=== PATIENT | male | born 1970 | race Caucasian/White ===

== ENCOUNTER 2023-03-19 07:16 | Outpatient (CLI) | payer OTHER, MEDICARE, SELFPAY | END 2023-03-19 07:17 | disposition home or self-care (01) | LOC: AMB 03-23 09:29 | PROVIDERS: PCP Physician Assistant Medical; Visit Provider Family Medicine | DX: R07.89 Other chest pain (principal) | CPT/HCPCS: A0425; A0427 ==

== ENCOUNTER 2023-03-19 07:56 | Emergency (ER) | payer OTHER, SELFPAY ==
[2023-03-19] VITALS (11 sets, daily range): BP systolic 113–144; BP diastolic 70–110; PULSE 44–70; RESP 12–30; TEMP 36.8; O2SAT 94–99; BMI 27.3
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
--- NOTE | 2023-03-19 08:39 | CRLHL7_ITS ---
For Patients: As a result of the Cures Act, medical imaging exams and procedure reports are released immediately into your electronic medical record. You may view this report before your referring provider. If you have questions, please contact your health care provider. INDICATION: CP INDICATION: Chest pain. TECHNIQUE: Chest 1 view. COMPARISON: 08/31/2022. FINDINGS: Cardiovascular and mediastinum: Heart size and vasculature are normal in caliber and appearance. Mediastinum is within normal limits. Lungs and pleural space: Lungs are clear. No sign of infiltrate or mass. No sign of pleural effusion. No pneumothorax. Bones and soft tissues: No significant findings. IMPRESSION: Lungs are clear. Dictated by Mello John MD @ 03/19/2023 9:16:29 AM Dictated by: Mello John MD @ 03/19/2023 09:16:35 (Electronically Signed)
[2023-03-19 08:50] LABS: Basophils Percent Auto 0.5 % (0.0-3.0); Eosinophils Percent Auto 2.9 % (0.0-7.0); Hematocrit 41.9 % (37.0-53.0); Hemoglobin* 14.2 gm/dL (13.5-17.5); Immature Granulocytes Pct Auto 0.9 %; Lymphocytes Percent Auto 17.1 % (20-44); Mean Corpuscular HGB Conc 34 gm/dL (32-36); Mean Corpuscular Hemoglobin 28 pg (26-34); Mean Corpuscular Volume 83 fL (80-100); Monocytes Percent Auto 4.4 % (0.0-11.0); Neutrophils Percent Auto 74.2 % (42.0-72.0); Platelet Count* 386 K/uL (140-440); RDW Coefficient of Variation % 12.2 % (11.5-15.5); Red Blood Count 5.06 m/uL (4.30-5.90)
[2023-03-19 08:54] LABS: Slide Review Reflex No
[2023-03-19 09:02] LABS: Albumin* 4.4 g/dL (3.3-5.0); Chloride* 105 mmol/L (96-114)
[2023-03-19 09:03] LABS: Potassium* 4.2 mmol/L (3.6-5.1); Sodium* 137 mmol/L (135-149)
[2023-03-19 09:05] LABS: Alkaline Phosphatase* 64 U/L (40-150); Aspartate Amino Transferase* 25 U/L (12-35); Bilirubin Total* 0.3 mg/dL (0.1-1.5); Carbon Dioxide* 25 mmol/L (20-32); Creatinine* 0.8 mg/dL (0.5-1.5); Est. Creatinine Clearance* 110.47; Estimated Glomerular Filt Rate 108 ml/min; Lipase* 54 U/L (23-300); Total Protein* 7.3 g/dL (6.0-8.3)
[2023-03-19 09:06] LABS: Alanine Aminotransferase* 24 U/L (4-50); Blood Urea Nitrogen* 12 mg/dL (7-30); Glucose* 132 mg/dL (60-115); Magnesium* 2.3 mg/dL (1.5-2.6)
[2023-03-19] MEDS: ONDANSETRON 2 MG/ML inj 4 MG IVP (09:07)
[2023-03-19 09:09] LABS: C Reactive Protein* < 0.5 mg/dL (0.5-1.0)
[2023-03-19 09:20] LABS: D Dimer Quantitative* < 0.27 ug/ml (0.00-0.50)
--- NOTE | 2023-03-19 09:28 | CRLHL7_ITS ---
For Patients: As a result of the Century Cures Act, medical imaging exams and procedure reports are released immediately into your electronic medical record. You may view this report before your referring provider. If you have questions, please contact your health care provider. INDICATION: Chest pain Indication: Chest pain. Technique: CT pulmonary angiogram. 95 cc of Isovue 370 IV. Coronal/sagittal reconstruction images. Comparison: Chest one view, 03/19/2023. Findings: The thyroid gland is symmetric. There is no mass at the thoracic inlet. Nonenlarged axillary lymph nodes are present. There is no displaced intimal calcification. The main pulmonary artery is normal in caliber. No pulmonary emboli are seen. There is no evidence for right heart strain. Thoracic lymphadenopathy. The lung windows demonstrate no endobronchial mass. There is no bronchiectasis. There is no architectural distortion. There is no peripheral reticulation, honeycomb formation, or traction bronchiectasis. Minimal paraseptal emphysema at the right lung apex. No suspicious pulmonary nodule. Evaluation the upper abdomen demonstrates a non cirrhotic liver morphology. No dilation of intrahepatic biliary radicals. No radiopaque gallstone. No right adrenal mass. There is a nodule present in the lateral limb, left adrenal gland, measuring 13 mm, and -7 Hounsfield units. There is no pancreatic mass or glandular atrophy. No upper abdominal ascites. The bone windows demonstrate no suspicious bone lesions. Alignment is maintained on sagittal reconstruction images. Manubrium/body of the sternum appear intact. Impression: 1. No pulmonary emboli. 2. No evidence on CT for right heart strain. No pulmonary infarct. 3. No thoracic lymphadenopathy by size criteria. No acute airspace disease. 4. Incidental nodule in the lateral limb of the left adrenal gland measuring 13 mm. Given density characteristics, an adenoma is favored. 5. Report called to Dr. Galvan, KEYSHA, 03/19/23, 1039 am. Dictated by Mello John MD @ 03/19/2023 10:40:02 AM Please note that all CT scans at this facility use dose modulation, iterative reconstruction, and/or weight-based dosing when appropriate to reduce radiation dose to as low as reasonably achievable. Dictated by: Mello John MD @ 03/19/2023 10:40:12 (Electronically Signed)
[2023-03-19] MEDS: KETOROLAC 15 MG/ML inj IVP (09:36)
--- NOTE | 2023-03-19 11:15 | ED.NURSE ---
patient is feeling much better and more comfortable in the bed. pain is much improved.
[2023-03-19 11:23] LABS: Troponin, Point-of-Care* 0.01 ng/ml (0.01-0.04)
[2023-03-23 18:10] LABS: Calcium* 9.4 mg/dL (8.4-10.6)
== END 2023-03-19 12:12 | disposition home or self-care (01) ==
PROVIDERS: Emergency Provider Family Medicine; PCP Physician Assistant Medical
DX: R09.1 Pleurisy (principal); R07.89 Other chest pain
CPT/HCPCS: 36415; 71045; 71275; 80053; 83690; 83735; 84484; 85025; 85379; 86140; 93005; 96374; 96375; 99284; 99285; J1885; J2405; Q9967

== ENCOUNTER 2023-04-30 15:59 | Emergency (ER) | payer MEDICARE, SELFPAY ==
[2023-04-30 16:16] VITALS: BP 98/57; PULSE 72; RESP 16; O2SAT 93; BMI 24.4
--- OUTSIDE RECORDS SUMMARY | 2023-04-30 16:39 | XMS_ITS | Continuity of Care Document ---
Author Name Unknown Organization [facility] Address [place] [address], [address] [place] [address]- Encounter 03/20/23 - 03/22/23 [facility] [address] [place], [place] [address] Encounter Diagnosis Weakness(Discharge Diagnosis) - 03/20/23 Attending Physician: Vickey Rob MD Allergies, Adverse Reactions, Alerts No Known Allergies Assessment and Plan Extracted from: Title:Office Visit Note Author:Jaswant Rob MD Date:03/22/23 1.??Weakness??(R53.1) Weakness. ??I backed from the left??deltoid muscle biopsy. ??The patient is right-handed.?? We discussed the procedure the risk the recovery etc.??a surgery order was placed Ordered: [id number] office o/p new low 30-44 min (Charge), Quantity: 1, Weakness ?? Medications No Known Medications Problem List Condition Confirmation Course Effective Dates Status Health St [facility] Informant Chronic pain Confirmed Active Anxiety and depression Confirmed Active Lumbar spinal stenosis Confirmed Active Diagnosis Diagnosis Type Effective Dates Health Status Clini orly Service Informant Weakness Discharge Diagnosis 03/20/23 Vital Signs Most recent to oldest [Reference Range]: 1 Height Measured 68 in (03/20/23 1:35 PM) Weight Measured 172 lb (03/20/23 1:35 PM) Body Mass Index [18.5-25 kg/m2] 26.15 kg /m2 *HI* (03/20/23 1:35 PM) BSA 1.93 m2 (03/20/23 1:35 PM) Blood Pressure [90-120/60-80 mmHg] 122/7 4mmHg *HI* (03/20/23 1:35 PM) Mean Arterial Pressure 90 mmHg (03/20/23 1:35 PM) Peripheral Pulse Rate [60-100 bpm] 60 bp m (03/20/23 1:35 PM) Allergies Verified? Yes (03/20/23 1:35 PM) Medication History Verified? Yes (03/20/23 1:35 PM) Social History Social History Type Response Smoking Status Never smoker Sex Surgery Note * Vickey Rob MD: PERFORM Event Display: Surgery Note Authored Date: [id number] ARNOLDEBBIEDoug Shaw Address: [address] [place], [place] [address] Sex:Male :1970 Location:[place] Date of Service:03/20/2023 Chief Complaint New patient consult, left biceps biopsy History of Present Illness Patient is a 52-year-old male with chronic pain and weakness.?? He is referred by neurology??for a muscle biopsy.?? They requested left deltoid. Review of Systems Please see general surgery patient information form for complete ROS, which has been scanned into the medical record. Physical Exam Vitals & Measurements HR:??60??(Peripheral)?? BP:??122/74?? HT:??68??in?? WT:??172??lb?? BMI:??26.15?? Noncontributory Assessment/Plan 1.??Weakness??(R53.1) Weakness. ??I backed from the left??deltoid muscle biopsy. ??The patient is right-handed.?? We discussed the procedure the risk the recovery etc.??a surgery order was placed Ordered: [id number] office o/p new low 30-44 min (Charge), Quantity: 1, Weakness ?? Problem List/Past Medical History Ongoing Anxiety and depression Chronic pain Lumbar spinal stenosis Allergies No Known Medication Allergies No known allergies Social History Smoking Status Never smoker Electronically Signed on 03/22/2023 09:59 AM Vickey Rob MD
--- OUTSIDE RECORDS SUMMARY | 2023-04-30 16:39 | XMS_ITS | Continuity of Care Document ---
Author Name Unknown Organization [facility] Address [place] [address] [place] [address], [address] [place] [address]- Encounter 03/22/23 - 03/29/23 [facility] [address] [place] [address] Allergies, Adverse Reactions, Alerts No Known Allergies Problem List Condition Confirmation Course Effective Dates Status Health [facility] Informant Chronic pain Confirmed Active Anxiety and depression Confirmed Active Lumbar spinal stenosis Confirmed Active Social History Social History Type Response Smoking Status Never smoker Sex
--- OUTSIDE RECORDS SUMMARY | 2023-04-30 16:40 | XMS_ITS | Continuity of Care Document ---
Author Name Unknown Organization [facility] Address [address] [address] [place] [address] Phone Care Team Providers Care Registered Nurse Obstetrics Name Role Phone Brian Velásquez MD Unavailable Unavailabl e Allergies, Adverse Reactions, Alerts Substance Reaction Status Criticality No Known Allergies Active No Inform ation Medications Medication Instructions Dosage Effective Dates (start - stop) Status Comments LISINOPRIL (unknown strength) Not Available - Active Lomotil 2.5 mg-0.025 mg tablet take 1 tablet by oral route 2 times every day as needed 2.5 MG - Active trazodone 300 mg tablet take 1 tablet by oral route every evening with food as needed - Active Procedures Procedure Date Offic/outpt E&m Estab Low-mod 7 Routine Serum Collection Immuniz Admin; 1/combo Vacc/to 17 Influenza vaccine-quadrivalent 0.5 ML Oc Hepatic Function Panel Stool Kits Given Routine Serum Collection Offic/outpt E&m Estab Mod-hi 2 17 Gg; Iga, Igd, Igg, Igm, Ea Gg; Ige Hepatitis B Surface Antibody C-reactive Prot Hep B Core Antibody Hepatitis C Antibody; Hepatic Function Panel Colonoscopy Flex; W/bx 1/mx Ugi Endo; W/bx 1/mx Stool Kits Given FilmArray GI Panel Routine Serum Collection Offic/outpt E&m New Mod-hi Gg; Iga, Igd, Igg, Igm, Ea Bld Ct; Hg/pltlt Ct Auto/compl 17 Comp Metabolic Panel Advance Directives Directive Yes / No Effective Date File Name No Information Encounters Encounter Description Practice Location Reason(s) For Visit Diagnoses Date Provider Providers Copied on Encounter [facility], [address] [address], [place], [id number], [place] tel:[phone] [facility] No Information 7 Dideir Torres. [address], [place], [place], [id number] , [place]. tel: [phone] Offic/outpt E&m Estab Low-mod [facility], [address] [address], [place], [id number], [place] tel:[phone] [facility] GI Symptoms or Concerns (chief complaint) Diverticulosis of colonElevated LFTs 7 Didier Torres. [address], [facility] [place], [id number] , [place]. tel: [phone] Referring Provider: Referral Self. [facility], [address] [address], [place], [id number], [place] tel:[phone] [facility] No Information 7 Didier Torres. [address], [facility] [place], [id number] , [place]. tel: [phone] Referring Provider: Referral Self. Offic/outpt E&m Estab Mod-hi 2 [facility], [address] [address], [place], [id number], [place] tel:[phone] [facility] GI Symptoms or Concerns (chief complaint) Diarrhea, unspecifiedAlcoho l abuseElevated LFTs 7 Didier Torres. [address], [place], [id number] , [place]. [phone] Referring Provider: Referral Self. [facility], [address] [address], [place], [id number], [place] tel:[phone] [facility] No Information Medardo Bentley. [address], [place], [id number] , [place]. tel:[phone] Referring Provider: Mc Batres MD S, [address], [place], [address] . tel:[phone] [facility], [address] [address], [place], [id number], [place] tel:[phone] [facility] Noninfective gastroenteritis and colitis, unspecified Didier Torres. [address], [facility] [address], [place], [id number] , [place]. tel:[phone] Referring Provider: Referral Self. Offic/outpt E&m New Mod-hi [facility], [address] [address], [place], [id number], [place] tel:[phone] [facility] GI Symptoms or Concerns (chief complaint) Nausea vomiting and diarrheaDiarrhea, unspecifiedAbnorm al CT scan, small bowelChronic diarrheaAlcohol abuseDietary counseling and surveillanceEleva andrew blood-pressure reading, w/o diagnosis of htn Didier Torres. [address], [place], [id number] , [place]. tel: [phone] Referring Provider: Referral Self. Family History Family Member Type Diagnosis Age At Onset Maternal uncle Problem (finding) diverticulitis of col on Mother Problem (finding) malignant neop lasm of breast in first degree relative Immunizations Vaccine Date Status Comments Influenza, injectable, quadrivalent, preservative free, 3 yrs or older administered Source: New Immuniz ation Record Payers Payer name Insurance type Covered green party ID Authoriza tion(s) [employer] [facility] [id number] [employer] [facility] [id number] Social History Type Description Quantity Date Captured Comments Alcohol Use Details Unknown Caffeine Use Details Unknown Tobacco Use Status Smoking Status No Information Sex Male Chief Complaint And Reason For Visit No Information Reason For Referral Reason For Referral No Information Plan Of Treatment Date Type Action Status Goal Lifestyle education regardin g diet completed Referral Ordered: Pancreatic Elastase, Fecal Appointment date/timeframe: 05/15/2017 ordered Referral Ordered: Fecal Fat, Qualitative Appointment date/timeframe: 05/22/2017 ordered Referral Ordered: MRI Enterography WITHOUT And WITH Contrast Appointment date/timeframe: 04/24/2017 ordered Referral Ordered: Colonoscopy Appointment date/timeframe: 04/06/2017 ordered Referral Ordered: EGD Appointment date/timeframe: 04/06/2017 ordered History Of Present Illness Encounter Date Complaint History Of Prese nt Illness GI Symptoms or Concerns BOGDAN Wood comes to the office for followup. We reviewed his workup to date including negative MR enterography from 04/25/2017, negative ultrasound of the liver from 04/24/2017, negative colonoscopy with negative biopsies, and negative EGD with reactive gastropathy from 04/06/2017. We also reviewed his negative laboratory work as to the causes of chronic liver disease other than alcohol or fatty liver.His diarrhea has essentially resolved. He has one or two loose stools per week, but this is significantly better than before. He is not on a high-fiber diet. He does not have significant abdominal pain or rectal bleeding. He does not have constipation. There is no melena. There is no dysphagia, odynophagia, nausea, vomiting, heartburn, jaundice, fatigue, pruritus, shortness of breath, or diaphoresis. He has decreased his alcohol consumption significantly. This past weekend, he had four beers while watching a football game and the weekend before that he had eight GI Symptoms or Concerns BOGDAN Lott comes to the office for followup. His original note from 03/27/2017 is reviewed. His testing from that day reveals normal hemoglobin and hematocrit, WBC mildly elevated at 11.6, AST of 66, ALT of 114, normal alkaline phosphatase, normal bilirubin, total immunoglobulins 133, no evidence for celiac disease, TSH normal at 4.2, stool test by EILEEN was negative.EGD and colonoscopy performed on 04/06/[address] Batres showed a normal exam, except for sigmoid diverticulosis. EGD showed mild gastritis. Pathology study showed normal duodenum with no evidence for celiac disease, reactive gastropathy likely secondary to alcohol, and random colonic biopsies were negative for microscopic colitis.The patient has about 50% to 60% improved. He continues to have loose stools up to six times or more daily. His abdominal pain has essentially resolved. There is no rectal bleeding or melena. He is feeling stronger, albeit not back to his baseline. He continues to consume GI Symptoms or Concerns [facility].CHIEF COMPLAINTAbdominal pain, abnormal CAT scan, and diarrhea.HISTORY OF PRESENT ILLNESSMr. Wood is a 46-year-old gentleman with a past medical history of chronic alcohol abuse as well as chronic diarrhea, who was seen in followup from [facility]. He reports a baseline loose stool for the past 10 years. This is described as four to six loose to semiformed bowel movements daily, albeit sometimes less. There is no rectal bleeding or melena, although he did have one episode of hematochezia recently. Over the past six months, this has increased to 10 bowel movements daily, and over the past several days, he had significant abdominal pain. There is no ongoing bleeding or melena. He had nausea and vomiting x2 associated with the acute nausea and vomiting. He was seen at [facility] last Monday and had a CT scan, which showed mucosal thickening in the jejunum related to likely gastroenteritis with an otherwise negative e Functional Status Date Functional Assessmen t No Information Instructions Date Instruction Additional Infor valerie 1. High-fiber diet 2 5 g daily. The patient given literature regarding high-fiber diet.2. Recheck liver function testing today. If this remains elevated, I will have him follow up with the [facility].3. The patient will be notified of the above results and appointment made if needed.4. Continue to lower alcohol consumption as much as possible. The patient has done very good job from this perspective and overall feels 100% better than when he was originally seen.5. The patient otherwise will follow up with his primary care provider and contact our office with any problems, questions, or concerns regarding the above.6. The patient's questions were answered today to his satisfaction. He voices understanding and agrees with the above plan. Related to Diverticulosis of colon Diverticulosis/Diverticulitis Re lated to Diverticulosis of colon High fiber det Related to Diver ticulosis of colon 1. Serological jovanny p for causes of liver disease as ordered.2. Check stool for elastase and check a lipase today.3. We will check an ultrasound of the liver given his ongoing alcohol consumption and abnormal liver function testing.4. We will check an MR enterography to follow up on the CT scan thickenings.5. I will give the patient Lomotil one capsule once or twice daily to see if we can help with his bowel movements.6. Again, I had a long discussion with the patient regarding the need to discontinue alcohol consumption and hopefully can go back to Alcoholics Anonymous. Patient again voices understanding and says he will try.7. Patient will see me back in one month, or sooner if indicated.8. Patient's questions were answered today to his satisfaction. He voices understanding and agrees with the above plan.9. Patient otherwise will follow up with his primary care physician and contact their office if any problems, questions, or concerns regarding the above. Related to Diarrhea, unspecified Lifestyle education regarding di et Related to Dietary counseling and surveillance Assessments Type Assessment Date No Information Patient Care Teams Name Effective Dates (start - stop) Status Members No Information
--- OUTSIDE RECORDS SUMMARY | 2023-04-30 16:40 | XMS_ITS | Continuity of Care Document ---
Author Name Unknown Organization [facility] Address [address] [place] [address] Phone Care Team Providers Care Digital Color Press Operator Name Role Phone Will Jaspal CASTANEDA Unavailable Unavailabl e Allergies, Adverse Reactions, Alerts Substance Reaction Status Criticality No Known Allergies Active No Inform ation Medications Medication Instructions Dosage Effective Dates (start - stop) Status Comments trazodone 150 mg tablet Take 200 mg by mouth nightly. - Active Pain Relief 500 mg tablet Take 1 tablet by mouth every 4 hours as needed for Pain. Maximum 4000mg per 24 hours - Active Celebrex 200 mg capsule Take 200 mg by mouth daily (every 24 hours). - Active metoprolol succinate ER 100 mg tablet,extended release 24 hr take 2 tablet by oral route every day 200 MG - Active amlodipine 10 mg tablet take 1 tablet by oral route every day 10 MG - Active bupropion HCl 150 mg tablet,12 hr sustained-release(smo derick deterrent) take 1 tablet by oral route every day 150 MG - Active Procedures Procedure Date PT-FOCUSED HLTH RISK ASSMT OFFICE/OUTPAT[place] VISIT, [place] Directive Yes / No Effective Date File Name No Information Encounters Encounter Description Practice Location Reason(s) For Visit Diagnoses Date Provider Providers Copied on Encounter [facility], [address] [place], [place], [id number] , tel:[phone] [facility] No Information 2 Jaxson Shay. [address] [place], [id number] , [place]. [phone] OFFICE/OUTPA TIENT VISIT, [facility], [address] [place], [place], [id number] , [place] tel:[phone] [facility] low back pain (chief complaint) Encounter for screening, unspecifiedAnxiety disorder, unspecifiedOther manager long term care (current) drug therapyLow back pain 0 Pratibha Ruiz. [address], [place], [id number] , [place]. tel:[phone] Referring Provider: Jaspal Angel, [address] [place], [address] . tel:[phone] [facility], [address] [place] [address], [id number] , [place] tel:[phone] [facility] No Information 0 Kayleigh Mendoza. [employer], [address], [place], [address], [place]. [phone] Family History Family Member Type Diagnosis Age At Onset No Information Payers Payer name Insurance type Covered constitution party ID Authoriza tiyaz(s) [employer] [id number] Social History Type Description Quantity Date Captured Comments Sex Male Smoking Status No Information Chief Complaint And Reason For Visit No Information Reason For Referral Reason For Referral No Information Plan Of Treatment Date Type Action Status Goal Tobacco cessation counseling completed History Of Present Illness Encounter Date Complaint History Of Prese nt Illness low back pain Onset: sudden wi th injury. Severity level is 5. Duration: chronic. The problem is stable. It occurs persistently. Location of pain is gluteal area and bilateral hips.The patient describes the pain as an ache and sharp. Symptoms are aggravated by ascending stairs, bending, descending stairs, lifting, sitting, standing, walking and movement. Symptoms are relieved by heat, ice, lying down, pain meds/drugs, rest, sitting and standing. low back pain (comments) Roque wang s a 49 year old male referred to our clinic by his PCP, Christa Burks.He presents with a year history of low back pain R>L and left hip pain which began in April 2019 as the result of a work place injury where he fell off of a step-stool Per pt report, he was evaluated and determined to have fractured a rib and 4 bulging disks. Reports pain travelling down legs while walking. Reports occasional sudden loss of strength while walking. Reports his pain is worse with walking, unable to stand for extended periods of time, unable to sit for >15 minutes.Additional complaints of headaches which are typically managed with Excedrin.Previous course of PT without benefit and increased pain. Previous GTB bursa and MBBx2 injections through [facility]. Scheduled to complete MBB 09/25 at [facility], pursuing RFA. Most recent imaging completed 06/2019 at [facility]. Previous trial of gabapentin caused aggression and increased headaches. Ongoing use of celebrex with benefit.Patient requests to have [facility] assume medication management - currently Rx'd by PCP Functional Status Date Functional Assessmen t No Information Instructions Date Instruction Additional Infor mation No Information Assessments Type Assessment Date No Information Patient Care Teams Name Effective Dates (start - stop) Status Members No Information
--- NOTE | 2023-04-30 16:45 | CRLHL7_ITS ---
For Patients: As a result of the Cures Act, medical imaging exams and procedure reports are released immediately into your electronic medical record. You may view this report before your referring provider. If you have questions, please contact your health care provider. Indication: metal nail removed near 2nd digit Technique: Left hand 3 views. Comparison: None. Impression: Along the ulnar aspect near the diaphysis of the 2nd distal phalanx there is a probable small osseous fragment, suspicious for avulsion fracture versus less likely retained metal fragment as clinically queried. No other evidence of fracture. Tiny radiopaque speckle near the ulnar styloid which may represent a foreign body. No subcutaneous emphysema. Dictated by Dorian Thomas MD @ 04/30/2023 5:32:02 PM (Electronically Signed)
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
--- NOTE | 2023-04-30 17:04 | ED.NURSE ---
Soaking hand in hibiclens, will wrap with dry gauze afterward
== END 2023-04-30 17:33 | disposition home or self-care (01) ==
PROVIDERS: Emergency Provider Student in an Organized Health Care Education/Training Program; PCP Physician Assistant Medical
DX: S61.442A Puncture wound with foreign body of left hand, initial encounter (principal); W29.4XXA Contact with nail gun, initial encounter
CPT/HCPCS: 10120; 73130; 90471; 90714; 99283

== ENCOUNTER 2024-01-22 08:07 | Outpatient (CLI) | payer BC, MEDICAID, SELFPAY ==
--- OUTSIDE RECORDS SUMMARY | 2024-01-24 01:36 | XMS_ITS | Clinical Summary ---
Author Organization [facility] Address [address] [place] [address]. [place] [address] Care Team Providers Care Automobile Service Writer Name Role Phone Bruce, [facility] Primary Care Provider Allergies No known active allergies Medications Medication Sig Dispensed Refills Start Date End Date Status TRAZODONE HCL PO Take 300 mg by mouth nightly as needed for sleep Active amLODIPine (NORVASC) 10 MG tablet Take 10 mg by mouth daily Active Metoprolol Tartrate 75 MG TABS Active celecoxib (CELEBREX) 400 MG capsule Take 400 mg by mouth daily Active Methocarbamol (ROBAXIN PO) Active Active Problems Problem Noted Date Diagnosed Date Chest pain at rest 12/21/2015 Pneumonia 09/11/2013 Resolved Problems Problem Noted Date Diagnosed Date Resolved Date Chest pain 12/21/2015 12/22/2015 Immunizations Name Administration Dates Next Due Pneumococcal 23 valent 09/14/2013 Family History Medical History Relation Comments Brain Cancer Brother Cerebrovascular Disease Father Coronary Artery Disease Father Cerebrovascular Disease Maternal Grandfather Rheumatoid Arthritis Maternal Grandmother Breast Cancer Mother Coronary Artery Disease Mother Rheumatoid Arthritis Mother Relation Status Comments Brother Father Maternal Grandfather Maternal Grandmother Mother Social History Tobacco Use Types Packs/Day Years Used Date Smoking Tobacco: Every Day Cigarettes 1 15 Smokeless Tobacco: Current Tobacco Cessation:Ready to Q uit: No; Counseling Given: Yes Alcohol Use Standard Drinks/Week Comments Yes 90 (1 standard drink = 0.6 oz pu re alcohol) Adolescent Education Answer Date Record ed Getting School Help Needed Not on file 05/06 Sex and Gender Information Value Date Recorded Sex Assigned at Not on file Gender Identity Not on file Sexual Orientation Not on file Last Filed Vital Signs Vital Sign Reading Time Taken Comments Blood Pressure 134/82 10/08/2019 1:13 PM CDT Pulse 80 10/08/2019 1:13 PM CDT Temperature 36.7 ??C (98.1 ??F) 10/05/2019 5:24 PM CS T Respiratory Rate 16 10/08/2019 1:13 PM CDT Oxygen Saturation 94% 10/08/2019 1:13 PM CDT Inhaled Oxygen Concentration - - Weight 95.3 kg (210 lb) 10/08/2019 1:13 PM CDT Height 170.2 cm (5' 7) 10/08/2019 1:13 PM CDT Body Mass Index 32.89 10/08/2019 1:13 PM CDT Plan of Treatment Not on file Advance Directives For more information, please contact: [phone] * Full Code (Latest Code Status on File) Date Activated Date Inactivated Comments 12/22/2015 9:08 AM 09/02/2018 12:21 PM * Full Code Date Activated Date Inactivated Comments 12/21/2015 12:28 PM 12/22/2015 9:08 AM * Full Code Date Activated Date Inactivated Comments 09/11/2013 6:38 PM 09/14/2013 2:23 PM Care Teams Automobile Service Writer Relationship Specialty Start Date End Date Clinic, [facility] [address] PCP - General 09/02/18
--- OUTSIDE RECORDS SUMMARY | 2024-01-24 01:36 | XMS_ITS | Continuity of Care Document ---
Author Organization [facility] Address [address] [place] [address] Phone Care Team Providers Care Rn Tele Name Role Phone RN, RN Unavailable Unavailable Allergies, Adverse Reactions, Alerts Substance Reaction Status Criticality No Known Allergies Active No Inform ation Advance Directives Directive Yes / No Effective Date File Name Other Directive No N/A N/A WARNING:The information contained in this section is historical and is provided for information only and does not constitute a legal document or any assurance that the information is still accurate. Please verify the information with the marcial of the legal document before using it for clinical purposes. Encounters Encounter Description Practice Location Reason(s) For Visit Diagnoses Date Provider Providers Copied on Encounter [facility], [address], [place], [id number], tel:[phone] [facility] No Information RN NILES. [address], [address], [place], [id number], [place]. tel:[phone] Family History Family Member Type Diagnosis Age At Onset No Information Payers Payer name Insurance type Covered green party ID Authoriza tion(s) No Information Social History Type Description Quantity Date Captured Comments Alcohol Use Details Unknown Caffeine Use Details Unknown Tobacco Use Status No Information Smoking Status No Information Sex Male Chief Complaint And Reason For Visit No Information Reason For Referral Reason For Referral No Information Plan Of Treatment Date Type Action Status Appointment [place] BOOKED History Of Present Illness Encounter Date Complaint History Of Prese nt Illness No Information Functional Status Date Functional Assessmen t No Information Instructions Date Instruction Additional Infor mation No Information Assessments Type Assessment Date No Information Patient Care Teams Name Effective Dates (start - stop) Status Members No Information
--- OUTSIDE RECORDS SUMMARY | 2024-01-24 01:36 | XMS_ITS | Referral Summary ---
Author Organization [facility] Address [address] [place] [address]. [place] [address] Care Team Providers Care Director Of Medical Staff Services Name Role Phone [facility] Primary Care Provider Allergies No known active [...] Dates Next Due Pneumococcal 23 valent 09/14/2013 Social History Tobacco Use Types Packs/Day Years [...] Advance Directives For more information, please contact: [phone] * Full Code (Latest Code Status on File) Date Activated Date Inactivated Comments 12/22/2015 9:08 AM 09/02/2018 12:21 PM * Full Code Date Activated Date Inactivated Comments 12/21/2015 12:28 PM 12/22/2015 9:08 AM * Full Code Date Activated Date Inactivated Comments 09/11/2013 6:38 PM 09/14/2013 2:23 PM Care Teams Director Of Medical Staff Services Relationship Specialty Start Date End Date Pe[facility] Barrera [address] [place] [address] [facility] - General 09/02/18
--- OUTSIDE RECORDS SUMMARY | 2024-01-24 01:36 | XMS_ITS | Clinical Summary ---
Author Organization [facility] Address [address] [place] [address] Care Team Providers Care Test Conductor Name Role Phone Found, No Pcp MD Primary Care Provider Unavailab le Source Comments You are receiving this document as you are listed as the primary care provider,follow-up provider, or the patient has been referred to you for consultation.This is in compliance with the Medicare andMedicaid EHR Incentive Program,which states Providers who transition their patient to another setting of careor provider of care or refers their patient to another provider of care shouldprovide summary care record for each transition of care or referral. [facility] [employer] Allergies No known active allergies Medications Medication Sig Dispensed Refills Start Date End Date Status traZODone (AKA DESYREL) 150 MG tablet Take 225 mg by mouth nightly. 11/21/2011 Active celecoxib (AKA CELEBREX) 200 MG capsule Take 200 mg by mouth daily (every 24 hours). 11/21/2011 Active acetaminophen (AKA TYLENOL EXTRA STRENGTH) 500 MG tablet Take 1 tablet by mouth every 4 hours as needed for Pain. Maximum 4000mg per 24 hours 100 tablet 0 11/21/2011 Active traZODone (DESYREL) 150 MG tablet Take 200 mg by mouth nightly. 08/28/2013 Active diclofenac (VOLTAREN) 75 MG enteric coated tablet Take 1 Tab by mouth two times a day. 60 Tab 01/18/2017 Active HYDROcodone-acetamin ophen (NORCO) 5-325 MG tablet Take 1-2 Tablets by mouth every 6 hours as needed for Pain. 15 Tablet 05/08/2019 Active Active Problems Problem Noted Date Diagnosed Date Insomnia 11/21/2011 Osteoarthritis of multiple joints 11/21/2011 Overview: Osteoarthrosis involving, or with mention of more than one site, but not specified as generalized, multiple sites Rheumatoid factor positive 11/21/2011 Overview: RA 14 (0-14) with no clinical inflammatory arthritis Tobacco use disorder 11/21/2011 Alcohol use 11/21/2011 Immunizations Name Administration Dates Next Due TDAP (BOOSTRIX) 08/28/2013 Social History Tobacco Use Types Packs/Day Years Used Date Smoking Tobacco: Every Day Cigarettes 1 23 Smokeless Tobacco: Never Alcohol Use Standard Drinks/Week Comments Not Currently 0 (1 standard drink = 0.6 oz pur e alcohol) Sex and Gender Information Value Date Recorded Sex Assigned at Not on file Gender Identity Not on file Sexual Orientation Not on file Last Filed Vital Signs Vital Sign Reading Time Taken Comments Blood Pressure 146/98 05/08/2019 10:37 AM CDT Pulse 86 05/08/2019 10:37 AM CDT Temperature 36.9 ??C (98.4 ??F) 05/08/2019 10:37 AM C DT Respiratory Rate 20 05/08/2019 10:37 AM CDT Oxygen Saturation 98% 05/08/2019 10:37 AM CDT Inhaled Oxygen Concentration - - Weight 89.8 kg (198 lb) 12/21/2016 3:21 PM CDT Height 172.7 cm (5' 8) 12/21/2016 3:21 PM CDT Body Mass Index 30.11 12/21/2016 3:21 PM CDT Plan of Treatment Health Maintenance Due Date Last Done Comments Colon Cancer Screening Plan Due 1972 PSA Screening Discussion 1972 HIV Screening (Preventive Services) 1988 Adult Preventive Visit 1990 HepB (1) 1991 Cholesterol 2007 Zoster/Shingles (1 of 2) 2022 COVID-19 Vaccine (1 - 2022- season) 2023 DTaP/Tdap/Td (2 - Tdap) 08/28/2023 08/28/2013 Influenza (Season Ended) 2024 020, 10/22/2019, 05/09/2018, Additional history exists Pneumococcal (3 - PPSV23 or PCV20) 2037 06/14/2017, 05/24/2016, 09/14/2013 Hep C Screening (Preventive Services) Completed 11/21/2011 HepA Aged Out No longer eligi ble based on patient's age to complete this topic Hib Aged Out No longer eligi ble based on patient's age to complete this topic IPV (Polio) Aged Out No longer eligi ble based on patient's age to complete this topic MCV4 Aged Out No longer eligi ble based on patient's age to complete this topic Procedures Procedure Name Priority Date/Time Associated Diagnosis Comments HEPATITIS C ANTIBODY, WITH REFLEX Routine 11/21/2011 3:38 PM CDT Rheumatoid factor positive from Last 3 Months or Most Recently Relevant to Health Maintenance Results * Hepatitis C Antibody, with Reflex (11/21/2011 3:38 PM CDT) Hepatitis C Antibody Non-React Non-Reacti ve HP CONVERSION 11/21/2011 3:38 PM CDT 11/21/2011 6:41 PM CDT Brooke Acevedo MD LAB_1 HP CONVERSION from Last 3 Months or Most Recently Relevant to Health Maintenance Care Teams Test Conductor Relationship Specialty Start Date End Date Found, No Pcp, [address] [place] [address] PCP - General 08/29/13
--- OUTSIDE RECORDS SUMMARY | 2024-01-24 01:36 | XMS_ITS | Clinical Summary ---
Author Organization [facility] Address [place], [place] [address] Care Team Providers Care Grape Crusher Name Role Phone Pcp, No Unavailable Unavailable Christa Burks PA-C Primary Care Provider [phone] Allergies No known active allergies Medications Medication Sig Dispensed Refills Start Date End Date Status amLODIPine (NORVASC) 10 mg tablet Take 10 mg by mouth once daily. 11/11/2021 Active cyclobenzaprine (FLEXERIL) 10 mg tablet Take 10 mg by mouth 3 times daily if needed. 11/24/2021 Active metoprolol succinate (TOPROL XL) 100 mg Sustained-Relea se tablet Take 100 mg by mouth once daily. 11/23/2021 Active rosuvastatin (CRESTOR) 40 mg tablet TAKE ONE TABLET BY MOUTH DAILY FOR CHOLESTEROL 12/23/2021 Active aspirin (ECOTRIN) 81 mg enteric coated tablet Take 1 Tablet (81 mg) by mouth once daily. 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 90 Tablet 09/30/2022 Active buprenorphine-n aloxone, 8 mg-2 mg, (SUBOXONE) (8-2 mg/tablet) sublingual tablet Place 1 Tablet under the tongue three times daily. Active buPROPion (Wellbutrin SR) 100 mg Sustained-Relea se tablet Take 100 mg by mouth two times daily. Active methylphenidate 54 mg extended-releas e tablet Take 54 mg by mouth once daily. Active traZODone (DESYREL) 150 mg tablet Take 450 mg by mouth at bedtime. Active multivit with cge-IS-zwhpbzzx (One-A-Day Men's 50 Plus) 400-370 mcg tab Take 1 Tablet by mouth once daily. Active loratadine (Claritin) 10 mg tablet Take 10 mg by mouth once daily if needed for Allergy Symptoms. Active buprenorphine-n aloxone, 8 mg-2 mg, (SUBOXONE) film sublingual DISSOLVE ONE FILM UNDER TONGUE THREE TIMES DAILY. 08/20/2021 4 Discontinued(Ph armacist change per medication history (E-cancel not sent)) buPROPion (WELLBUTRIN SR) 100 mg Sustained-Relea se tablet TAKE ONE TO TWO TABLETS BY MOUTH TWICE A DAY - MAX 200 MG PER DOSE AND 400 MG PER DAY 12/20/2021 4 Discontinued(Ph armacist change per medication history (E-cancel not sent)) Concerta 18 mg Extended-Releas e tablet Take 18 mg by mouth once daily. 12/22/2021 4 Discontinued(Ph armacist change per medication history (E-cancel not sent)) traZODone (DESYREL) 150 mg tablet Take 1.5 Tablets by mouth at bedtime. 02/21/2022 4 Discontinued(Ph armacist change per medication history (E-cancel not sent)) varenicline (CHANTIX) 1 mg tablet Take 1 mg by mouth in the morning and 1 mg in the evening. 03/09/2022 4 Discontinued(Ph armacist change per medication history (E-cancel not sent)) Active Problems Problem Noted Date Diagnosed Date Anxiety and depression 01/22/2024 Chronic pain 01/22/2024 Lumbar spinal stenosis 01/22/2024 Angina at rest 01/22/2024 Alcohol use 11/21/2011 Rheumatoid factor positive 11/21/2011 Overview: RA 14 (0-14) with no clinical inflammatory arthritis Tobacco use disorder 11/21/2011 Encounters Date Type Department Care Team Description 01/22/2024 9:05 AM CDT - 01/22/2024 4:11 PM CDT Emergency [facility] Emergency Department [address] [place] [address] Carolann Omalley MD [facility] [place] Hospitalists Gigi Caceres MD Coronary artery disease involving seneca[place] coronary artery of sen[place] heart, unspecified whether angina present (Primary Dx); Chest pain, unspecified type Discharge Disposition: Home Self Care from Last 3 Months Social History Tobacco Use Types Packs/Day Years Used Date Smoking Tobacco: Every Day Cigarettes Smokeless Tobacco: Never Comments:6-8 Cigarettes a da y Alcohol Use Standard Drinks/Week Comments Not Currently 0 (1 standard drink = 0.6 oz pur e alcohol) 3 years sober Social Connections Answer Date Recorded Frequency of Communication with Friends and Fami ly Not on file 07/27/2021 Financial Resource Strain Answer Date R ecorded Difficulty of Paying Living Expenses Not on file 07/27/2021 Difficulty of Paying Living Expenses Not on file 07/27/2021 Sex and Gender Information Value Date Recorded Sex Assigned at Not on file Gender Identity Not on file Sexual Orientation Not on file Obstetrics History Last Filed Vital Signs Vital Sign Reading Time Taken Comments Blood Pressure 153/86 01/22/2024 2:30 PM CDT Pulse 79 01/22/2024 2:30 PM CDT Temperature 36.8 ??C (98.3 ??F) 01/22/2024 9:11 AM CD T Respiratory Rate 14 01/22/2024 2:03 PM CDT Oxygen Saturation 97% 01/22/2024 2:30 PM CDT Inhaled Oxygen Concentration - - Weight 70.3 kg (155 lb) 01/22/2024 9:11 AM CDT Height 167.6 cm (5' 6) 01/22/2024 9:11 AM CDT Body Mass Index 25.02 01/22/2024 9:11 AM CDT Plan of Treatment Health Maintenance Due Date Last Done Comments Pneumococcal series for age 6-64 (1 of 2 - PCV) 1978 Tdap 1983 Depression screening for age 12+ 1984 HIV for age 15-65 1987 Hepatitis C screening for age 18-79 1990 Tetanus booster 1992 Colonoscopy through age 75 2017 Lipids for age 45-75 2017 Zoster (shingles) series for age 50+ (1 of 2) 2022 BMI (ht and wt on same day) for age 18+ 03/14/2023 0 03/14/2022, 12/29/2021 COVID-19 vaccine series ( season) 2023 Influenza for age 50-64 03/31/2024 Procedures Procedure Name Priority Date/Time Associated Diagnosis Comments APTT CARLOS 01/22/2024 1:[address] TRIPLE RULE OUT - DUAL READ STAT 01/22/2024 11:52 AM CDT TROPONIN T (HS) ONE TIME Timed 01/22/2024 11:37 AM CDT CBC W PLT NO DIFF STAT 01/22/2024 9:4 5 AM CDT EXTRA TUBE BLUE Today 01/22/2024 9:44 AM CDT TROPONIN T (HS) ACUTE W/2HR REFLEX STAT 01/22/2024 9:44 AM CDT BASIC METABOLIC PANEL STAT 01/22/2024 9:44 AM CDT EKG 12 LEAD STAT 01/22/2024 8:56 AM CDT from Last 3 Months Results * APTT (01/22/2024 1:59 PM CDT) APTT 35 28 - 36 sec 01/22/2024 2:24 PM CDT [facility] Blood BLOOD SPECIMEN / Unknown Butterfly / Unknown 01/22/2024 1:59 PM CDT 01/22/2024 2:06 PM CDT Narrative [facility] - 01/22/2024 2:24 PM CDT Therapeutic Range: 57-87 seconds Carolann Omalley MD HEMATOLOGY [facility] [address] [place] [address], * TROPONIN T (HS) ONE TIME (01/22/2024 11:37 AM CDT) Pathologist [facility] TROPONIN T HS 14 6-15 ng/L ng/L 01/22/2024 12:18 PM T [facility] Blood BLOOD SPECIMEN / Unknown Non-Lab Venipuncture / Unknown 01/22/2024 11:37 AM CDT 01/22/2024 11:37 AM CDT Carolann Omalley MD CHEMISTRY [facility] [address] [place] [address], * (ABNORMAL) CBC W PLT NO DIFF (01/22/2024 9:45 AM CDT) [facility] WHITE BLOOD COUNT 13.4(H) 4.5 - 11.0 thou/cu mm 01/22/2024 10:06 AM [facility] RED BLOOD COUNT 4.09(L) 4.30 - 5.90 mil/cu mm 01/22/2024 10:06 AM [facility] HEMOGLOBIN 11.7(L) 13.5 - 17.5 g/dL 01/22/2024 10:06 AM [facility] HEMATOCRIT 34.8(L) 37.0 - 53.0 % 01/22/2024 10:06 AM [facility] MCV 85 80 - 100 fL 01/22/2024 10:06 AM [facility] MCH 28.6 26.0 - 34.0 pg 01/22/2024 10:06 AM [facility] MCHC 33.6 32.0 - 36.0 g/dL 01/22/2024 10:06 AM [facility] RDW 13.4 11.5 - 15.5 % 01/22/2024 10:06 AM [facility] PLATELET COUNT 249 140 - 440 thou/cu mm 01/22/2024 10:06 AM [facility] MPV 9.0 6.5 - 11.0 fL 01/22/2024 10:06 AM CDT [facility] NRBC 0.0 % 01/22/2024 10:06 AM CDT [facility] ABS NRBC 0.0 thou /cu mm 01/22/2024 10:06 AM CDT [facility] Blood BLOOD SPECIMEN / Unknown Non-Lab Venipuncture / Unknown 01/22/2024 9:45 AM CDT 01/22/2024 9:52 AM CDT Carolann Omalley MD HEMATOLOGY [facility] [address] [place] [address], * TROPONIN T (HS) ACUTE W/2HR REFLEX (01/22/2024 9:44 AM CDT) TROPONIN T HS 15 6-15 ng/L ng/L 01/22/2024 10:37 AM CDT [facility] Blood BLOOD SPECIMEN / Unknown Non-Lab Venipuncture / Unknown 01/22/2024 9:44 AM CDT 01/22/2024 9:52 AM CDT Narrative [facility] - 01/22/2024 10:37 AM CDT hs-cTnT (Elecsys Troponin T Gen 5) concentration (s) above the sex-specific 99th percentile (16 ng/L or greater for males or 11 ng/L or greater for females) are indicative of myocardial injury. If initial hs-cTnT <=100 ng/L at presentation, a 0h/2h ABSOLUTE (ng/L) delta change (rising or falling) of >=10 ng/L suggests a significant change, whereas a 0h/2h delta change <=3 ng/L suggests no significant change. If initial hs-cTnT >100 ng/L at presentation, a 0h/2h/ RELATIVE (percent, %) delta change of 20% is suggested to distinguish patients with acute vs. chronic myocardial injury. There are multiple etiologies that can cause hs-cTnT increases above the 99th percentile (myocardial injury) other than acute myocardial infarction. Clinical context and careful clinical evaluation are critical for diagnosis and risk-stratification. The diagnosis of acute myocardial infarction requires a rising and/or falling pattern in hs-cTnT concentrations with at least one value above the sex-specific 99th percentile PLUS at least one of the following clinical criteria: ischemic symptoms, new or presumed new significant ST-T wave changes or new LBBB, development of pathological Q waves, imaging evidence of new loss of viable myocardium or new regional wall motion abnormality, or identification of intracoronary atherothrombosis or an acute angiographic culprit on coronary angiography. In appropriate low-risk patients with a non-ischemic electrocardiogram without active chest pain with a symptom onset >3-hours without recurrence, a single initial hs-cTnT<6 ng/L identifies patient with a very low risk in emergency department patient population. Carolann Omalley MD CHEMISTRY Performing Organization Address [facility] Co de Phone Number [facility] [address] [place] [address], [place] * EXTRA TUBE BLUE (01/22/2024 9:44 AM CDT) Blood BLOOD SPECIMEN / Unknown Non-Lab Venipuncture / Unknown 01/22/2024 9:44 AM CDT 01/22/2024 9:52 AM CDT Carolann Omalley MD LABORATORY Performing Organization Address [facility] Co de Phone Number [facility] [address] [address], [place] * (ABNORMAL) BASIC METABOLIC PANEL (01/22/2024 9:44 AM CDT) SODIUM 140 136 - 145 mmol/L 01/22/2024 10:37 AM CDT [facility] POTASSIUM 4.2 3.5 - 5.1 mmol/L 01/22/2024 10:37 AM CDT [facility] CHLORIDE 105 98 - 107 mmol/L 01/22/2024 10:37 AM CDT [facility] CO2,TOTAL 25 22 - 29 mmol/L 01/22/2024 10:37 AM CDT [facility] ANION GAP 10 5 - 18 01/22/2024 10:37 AM CDT [facility] GLUCOSE 133(H) 70 - 99 mg/dL 01/22/2024 10:37 AM CDT [facility] CALCIUM 9.4 8.6 - 10.0 mg/dL 01/22/2024 10:37 AM CDT [facility] BUN 10 6 - 20 mg/dL 01/22/2024 10:37 AM CDT [facility] CREATININE 0.77 0.70 - 1.20 mg/dL 01/22/2024 10:37 AM T [facility] BUN/CREAT RATIO 13 10 - 20 10:37 AM CDT [facility] eGFR >90 >90 mL/min/1.7 3m2 01/22/2024 10:37 AM T [facility] Comment:As of 2021, eG FR is calculated by the CKD-EPI creatinine equation without race adjustment. ??eGFR can be influenced by muscle mass, exercise, and diet. ??The reported eGFR is an estimation only and is only applicable if the renal function is stable. Blood BLOOD SPECIMEN / Unknown Non-Lab Venipuncture / Unknown 01/22/2024 9:44 AM CDT 01/22/2024 9:52 AM CDT Carolann Omalley MD CHEMISTRY [facility] [address] [place] [address], * EKG 12 LEAD (01/22/2024 8:56 AM CDT) Interpretation Sinus bradycardia Right bundle branch block Abnormal ECG BEYOND NOW Ventricular Rate 55 BPM BEYOND NOW Atrial Rate 55 BPM BEYOND NOW P-R Interval 158 ms BEYOND NOW QRS Duration 156 ms BEYOND NOW QT 462 ms BEYOND NOW QTc 441 ms BEYOND NOW P [place] 56 degrees BEYOND NOW R [place] 74 degrees BEYOND NOW T [place] 54 degrees BEYOND NOW 01/22/2024 8:56 AM CDT 01/22/2024 10:45 PM CDT Saman Napier RN EKG ORD BEYOND NOW [place], [place] from Last 3 Months Advance Directives * Full Code (Latest Code Status on File) Date Activated Date Inactivated Comments 01/22/2024 2:03 PM 01/22/2024 6:16 PM Question Answer Comments Code Status Discussion: Reviewed Preferences * Full Code Date Activated Date Inactivated Comments 03/21/2022 7:09 AM 03/22/2022 2:57 PM Question Answer Comments Code Status Discussion: Reviewed Preferences * Full Code Date Activated Date Inactivated Comments 06/28/2010 9:03 AM 06/28/2010 4:07 PM Care Teams Grape Crusher Relationship Specialty Start Date End Date Christa Burks PA-C [address] [place] [address] PCP - General Emergency Medicine 02/07/22 Pcp, No . 06/22/10
--- OUTSIDE RECORDS SUMMARY | 2024-01-24 01:36 | XMS_ITS | Continuity of Care Document ---
Author Organization [facility] Address [address] [address] [place] [address] Phone Care Team Providers Care Spout Positioner Name Role Phone Unavailable Unavailable Unavailable Allergies, Adverse Reactions, Alerts Substance [...] Diagnoses Date Provider Providers Copied on Encounter [facility], [address] [address], [place], [id number], [place] tel:[phone] [facility] No Information 7 No Information Offic/outpt E&m Estab Low-mod [facility], [address] [address], [place], [id number], [place] tel:[phone] [facility] GI Symptoms or Concerns (chief complaint) Diverticulosis of colonElevated LFTs 7 No Information Referring Provider: Referral Self, USE FOR SELF REFERRALS. [facility], [address] [address], [place], [id number], [place] tel:[phone] [facility] No Information 7 No Information Referring Provider: Referral Self, USE FOR SELF REFERRALS. Offic/outpt E&m Estab Mod-hi 2 [facility], [address] [address], [place], [id number], [place] tel:[phone] [facility] GI Symptoms or Concerns (chief complaint) Diarrhea, unspecifiedAlc ohol abuseElevated LFTs 7 No Information Referring Provider: Referral Self, USE FOR SELF REFERRALS. [facility], [address] [address], [place], [id number], [place] tel:[phone] [facility] No Information Medardo Bentley. [address] [place] [address], [facility] [address], [place], [place], [id number], [place]. tel:[phone] Referring Provider: Mc Batres MD S, [address] [place] [address] [address], [place], [address] . tel:[phone] [facility], [address] [address], [place], [id number], [place] tel:[phone] [facility] Noninfective gastroenteriti s and colitis, unspecified No Information Referring Provider: Referral Self, USE FOR SELF REFERRALS. Offic/outpt E&m New Mod-hi [facility], [address] [address], [place], [id number], [place] tel:[phone] [facility] GI Symptoms or Concerns (chief complaint) Nausea vomiting and diarrheaDiarrh ea, unspecifiedAbn ormal CT scan, small bowelChronic diarrheaAlcoho l abuseDietary counseling and surveillanceEl evated blood-pressure reading, w/o diagnosis of htn No Information Referring Provider: Referral Self, USE FOR SELF REFERRALS. Family History Family Member Type Diagnosis Age At Onset Maternal uncle Problem (finding) diverticulitis of col on Mother Problem (finding) malignant neop lasm of breast in first degree relative Immunizations Vaccine Date Status Comments Influenza, injectable, quadrivalent, preservative free, 3 yrs or older administered Source: New Immuniz ation Record Payers Payer name Insurance type Covered democrat ID Authoriza tion(s) [employer] [place] BL [id number] [employer] Of [facility] [id number] Social History Type Description Quantity Date Captured [...] diarrhea, who was seen in followup from [facility]. He reports a baseline loose stool for [...] nausea and vomiting. He was seen at [facility] last Monday and had a CT scan, [...]
== END 2024-01-22 08:08 | disposition home or self-care (01) ==
LOC: AMB 01-24 01:34
PROVIDERS: PCP Physician Assistant Medical; Visit Provider Emergency Medicine
DX: R07.89 Other chest pain (principal)
CPT/HCPCS: A0425; A0427

== ENCOUNTER 2024-04-22 12:04 | Outpatient (CLI) | payer BC, MEDICAID, SELFPAY ==
--- OUTSIDE RECORDS SUMMARY | 2024-04-22 12:08 | XMS_ITS | Continuity of Care Document ---
Author Organization [facility] Address [address] [place] [address] Phone Care Team Providers Care Gill Net Stringer Name Role Phone Ruy Waddell MD Unavailable Unavailable Allergies, Adverse Reactions, Alerts Substance Reaction Status Criticality No Known Allergies Active No Inform ation Medications Medication Instructions Dosage Effective Dates (start - stop) Status Comments TRAZODONE HCL (unknown strength) take 1 tablet by oral route every day at bedtime Not Available - Active AMLODIPINE BESYLATE (unknown strength) take 1 tablet by oral route every day Not Available - Active COTEMPLA XR-ODT (unknown strength) place 1 tablet by translingual route every day on top of tongue, allow to dissolve then swallow in the morning Not Available - Active METOPROLOL SUCCINATE (unknown strength) take 1 tablet by oral route 2 times every day Not Available - Active CLOPIDOGREL (unknown strength) take 1 tablet by oral route every day Not Available - Active WELLBUTRIN XL (unknown strength) take 1 tablet by oral route every day Not Available - Active ASPIRIN (unknown strength) take 2 tablet by oral route 5 times every day Not Available - Active IBUPROFEN (unknown strength) take 1 tablet by oral route 3 times every day with food Not Available - Active MULTIVITAMIN 50 PLUS (unknown strength) Not Available - Active ROSUVASTATIN CALCIUM (unknown strength) take 1 tablet by oral route every day Not Available - Active Medical Cannabis (unknown strength) Not Available - Active Procedures Procedure Date New Pt Eval Moderate Results Test Name Date and Time Measure Units Reference Range Abnormal Flag Status Commen ts Panel Description: X-RAY - Knee Final Document Panel Description: X-RAY - Knee Final Document Advance Directives Directive Yes / No Effective [...] Diagnoses Date Provider Providers Copied on Encounter New Pt Eval Moderate Titi, [facility], [address], [place], [place], [id number], [place] tel:[phone] [facility] lower back pain (chief complaint) shoulder pain (chief complaint) knee pain (chief complaint) Body mass index (BMI) 26.0-26.9, adultRadiculopathy , lumbar regionPrimary osteoarthritis of shoulderBilateral primary osteoarthritis of knee 4 Bairon Redmond. [address], [place], [place], [id number], [place]. tel:[phone] Referring Provider: Pema Martinez, [address] [place] [address], [id number]. tel:[phone] [facility], [address] [place], [place], [place], [id number], [place] tel:[phone] [facility] No Information 4 RN RN. [address] [place] [address], [address], [place], [place], [id number], [place]. tel:[phone] Family History Family Member Type Diagnosis Age At Onset No Information Payers Payer name Insurance type Covered republican ID Georgianamelania napoles(s) redealize [id number] [facility] [id number] Social History Type Description Quantity Date Captured Comments Alcohol Use Details No Caffeine Use Details Unknown Tobacco Use Status Smoking Status Current every day smoker Non-Smoking Tobacco Use Details : No Details Available : No Details Available Sex Male Vital Signs Date / Time: Height Weight BMI Pulse Rate Blood Pressure Temperature Respiratory Rate Body Surface Area Head Circumference Head Circ. Percentile Wt./Gómez. Percentile BMI percentile Pulse Ox Inhaled Ox 2:47 PM 66.00 in 73.482 kg (162.00 lbs) 26.1 5 kg/m eter (2) 57 /min 113/67 mm[Hg] 1.85 meter(2) 93 % Chief Complaint And Reason For Visit From encounter dated '01/25/2024 15:00'. lower back pain (chief complaint). Description: The pain is located in the low back on both sides. Pain intensity is currently 2/10.The pain is described as aching. The pain is associated with fall and arthritis. The following activities make the pain worse: lifting, bending and twisting. The following activities make the pain better: standing. Additional information: Patient suffered a fall during work in 2019 which was the onset of his low back pain. shoulder pain (chief complaint). Description: The pain is located in the both shoulders. Pain intensity is currently 2/10.The pain is described as aching. The pain is associated with fall and arthritis. The following activities make the pain worse: bending and twisting. The following activities make the pain better: standing. knee pain (chief complaint). Description: The pain is located in the both knees. Pain intensity is currently 2/10.The pain is described as aching. The pain is associated with fall and arthritis. The following activities make the pain worse: bending and twisting. The following activities make the pain better: standing. Reason For Referral Reason For Referral No Information Plan Of Treatment Date Type Action Status Goal Tobacco cessation counseling completed Referral Referred To: Physical Therapy Ordered: Referrals: Physical Therapy. Evaluate and treat ordered History Of Present Illness Encounter Date Complaint History Of Prese nt Illness Studies Reviewed MRI, lumbar spi ne, w/o contrast performed on 11/22/2023. Result: CONCLUSION:1 New right L3-4 subarticular/foraminal disc extrusion impinging transiting right L4/abutting exiting right L3 nerves. Overall mild spinal stenosis.2. Chronic severe right, mild-moderate left L5-S1 biforaminal stenoses due to bulging disc and asymmetric facet joint arthrosis. Exiting right L5 nerve chronically impinged.3. Stable mild-moderate L2-3, L4-5 disc degeneration with mild L4-5 facet joint overgrowth and mild-moderate biforaminal narrowing. No advancing neural compression. shoulder pain The pain is loca andrew in the both shoulders. Pain intensity is currently 2/10.The pain is described as aching. The pain is associated with fall and arthritis. The following activities make the pain worse: bending and twisting. The following activities make the pain better: standing. knee pain The pain is loca andrew in the both knees. Pain intensity is currently 2/10.The pain is described as aching. The pain is associated with fall and arthritis. The following activities make the pain worse: bending and twisting. The following activities make the pain better: standing. lower back pain The pain is loca andrew in the low back on both sides. Pain intensity is currently 2/10.The pain is described as aching. The pain is associated with fall and arthritis. The following activities make the pain worse: lifting, bending and twisting. The following activities make the pain better: standing. Additional information: Patient suffered a fall during work in 2019 which was the onset of his low back pain. Functional Status Date Functional Assessmen t Pain Score 2/10 Instructions Date Instruction Additional Infor valerie - Ordered x-ray of b ilateral knees at [facility], they will call you to schedule Related to Bilateral primary osteoarthritis of knee - Ordered lumbar epi dural steroid injection*Titi will call to schedule once insurance approves, if you don't hear back within the next week call at [phone] to check the status of your procedure- Ordered physical therapy evaluation- Consider series of lumbar medial branch blocks on the path to radiofrequency ablation- Continue medication management through [facility] - Follow up with nurse practitioner or PA 2 weeks after imaging and injection is complete Related to Radiculopathy, lumbar region - Consider intervent ional treatments for shoulders in the future Related to Primary osteoarthritis of shoulder Giving encouragement to exercise Related to Body mass index [BMI] 26.0-26.9, adult Giving encouragement to exercise Related to Body mass index [BMI] 26.0-26.9, adult Assessments Type Assessment Date assessment Body mass index (BMI) 26.0-26.9, adult assessment Radiculopathy, lumbar region Dec assessment Primary osteoarthritis of should er assessment Bilateral primary osteoarthritis of knee impression Roque presents with ongoing low back pain radiating into his bilateral legs. His pain began following a fall in 04/2019. He was previously seen at [facility] where he received injections in the past. He is currently seen at [facility] for medication management. He received TPIs at [facility] as well. Patient was referred from Pema Carrera as patient is interested in interventional procedures to manage his pain. Patient reports his low back pain has been quite manageable however noticed a pop in early December which caused numbness and tingling in his right leg. He reports the numbness has subsided however his low back pain continues to be bothersome.I reviewed his recent lumbar MRI which showed a new disc bulge at L3-4 with impingent at right L3 nerve root and chronic foraminal stenosis at L5-S1 with impingement at L5 nerve root. I recommended starting with a LESI along with PT for pain relief. His MRI also shows moderate facet arthropathy at multiple levels can consider LMBB on the path to LRFA pending relief from LESI impression Patient reports his GILDA knees have been bothersome for several years. I will order x-ray of his knees to assess impression He reports pain in h is bilateral shoulders. We focused mainly on his low back, can discuss at further visits Mental Status Date Cognitive Assessment Orientation - Bryan ed to time, place, person, situation. Patient Care Teams Name Effective Dates (start - stop) Status Members No Information
--- OUTSIDE RECORDS SUMMARY | 2024-04-22 12:08 | XMS_ITS | Continuity of Care Document ---
Author Organization [facility] Address [address] [place] [address] Phone Care Team Providers Care Paving Contractor Name Role Phone Will Jaspal CASTANEDA Unavailable [...] Diagnoses Date Provider Providers Copied on Encounter [facility], [address] [place], [place], [id number] , [place] tel:[phone] [facility] Bradley No Information 2 Jaxson Shay. [address] [place], [place], [id number] , [place]. tel:[phone] OFFICE/OUTPA TIENT VISIT, [facility], [address] [place], [place], [id number] , [place] tel: [phone] [facility] low back pain (chief complaint) Encounter for screening, unspecifiedAnxiety disorder, unspecifiedOther termination clerk (current) drug therapyLow back pain 0 Pratibha Ruiz. [address], [place], [id number] , [place]. tel: [phone] Referring Provider: Jaspal Angel, [address] [place] [address] [place], [address] . tel:[phone] [facility], [address] [place] [address], [id number] , [place] tel: [phone] [facility] No Information 0 Kayleigh Mendoza. [facility], [address], [place], [address], [place]. tel: [phone] Family History Family Member Type Diagnosis Age At Onset No Information Payers Payer name Insurance type Covered alliance party ID Authorrosalina napoles(s) [employer] [id number] Social History Type Description Quantity Date Captured [...] and standing. low back pain (comments) Roque i s a 49 year old male referred [...] Previous GTB bursa and MBBx2 injections through [facility]. Scheduled to complete MBB 09/25 at [facility], pursuing RFA. Most recent imaging completed 06/[address] [facility]. Previous trial of gabapentin caused aggression [...]
--- OUTSIDE RECORDS SUMMARY | 2024-04-22 12:08 | XMS_ITS | Clinical Summary ---
Author Organization [facility] Address [place], [place] [address] Care Team Providers Care Fast Food Delivery Driver Name Role Phone Pcp, No Unavailable Unavailable Christa Burks PA-C Primary Care Provider [phone] Allergies No known active allergies Medications Medication Sig Dispensed Refills Start Date End Date Status amLODIPine (NORVASC) 10 mg tablet Take 10 mg by mouth once daily. 11/11/2021 Active cyclobenzaprine (FLEXERIL) 10 mg tablet Take 10 mg by mouth 3 times daily if needed. 11/24/2021 Active metoprolol succinate (TOPROL XL) 100 mg Sustained-Releas e tablet Take 100 mg by mouth once daily. 11/23/2021 Active rosuvastatin (CRESTOR) 40 mg tablet TAKE ONE TABLET BY MOUTH DAILY FOR CHOLESTEROL 12/23/2021 Active aspirin (ECOTRIN) 81 mg enteric coated tablet Take 1 Tablet (81 mg) by mouth once daily. 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 90 Tablet 09/30/2022 Active buprenorphine-na loxone, 8 mg-2 mg, (SUBOXONE) (8-2 mg/tablet) sublingual tablet Place 1 Tablet under the tongue three times daily. Active buPROPion (Wellbutrin SR) 100 mg Sustained-Releas e tablet Take 100 mg by mouth two times daily. Active traZODone (DESYREL) 150 mg tablet Take 450 mg by mouth at bedtime. Active multivit with [id number] (One-A-Day Men's 50 Plus) 400-370 mcg tab Take 1 Tablet by mouth once daily. Active loratadine (Claritin) 10 mg tablet Take 10 mg by mouth once daily if needed for Allergy Symptoms. Active ibuprofen (ADVIL; MOTRIN) 600 mg tablet Take 250 mg by mouth two times daily. Active methylphenidate 36 mg extended-release tablet Take 36 mg by mouth once daily. 03/23/2024 Active methylphenidate 54 mg extended-release tablet Take 54 mg by mouth once daily. Discontinued (Duplicate therapy (E-cancel not sent)) Active Problems Problem Noted Date Diagnosed Date Anxiety and depression 01/22/2024 Chronic pain 01/22/2024 Lumbar spinal stenosis 01/22/2024 Angina at rest 01/22/2024 Alcohol use 11/21/2011 Rheumatoid factor positive 11/21/2011 Overview (01/22/2024): RA 14 (0-14) with no clinical inflammatory arthritis Tobacco use disorder 11/21/2011 Encounters Date Type Department Care Team Description 04/19/2024 4:58 PM CDT - 04/19/2024 9:22 PM CDT Emergency [facility] Emergency Department [address] [place] [address] Carmen Stoll MD Chest pain, unspecified type (Primary Dx) Discharge Disposition: Home Self Care 04/15/2024 10:00 AM CDT Orders Only [facility] [address] [facility] [address] [place] [address] Lab 04/15/2024 Travel 04/03/2024 1:30 PM CDT Office Visit [facility] [address] [facility] [address] [place] [address] Rajendra Macedo MD CV General Cardiology Est (Last seen Adalid and Ricardo in 2021 - F/U ED visit 01/22/24 referred by Jaclyn Donald NP - Coronary artery disease involving kake coronary artery of kake heart, unspecified whether angina present and Chest pain, unspecified /PT states not feeling good. 04/02 /pt states he is SOB and has a headache) 04/03/2024 Travel 01/22/2024 9:05 AM CDT - 01/22/2024 4:11 PM CDT Emergency [facility] Emergency Department [address] [place] [address] Carolann Omalley MD [facility] [place] [facility] Gigi Caceres MD Coronary artery disease involving kake coronary artery of kake heart, unspecified whether angina present (Primary Dx); Chest pain, unspecified type Discharge Disposition: Home Self Care from Last 3 Months Social History Tobacco Use Types Packs/Day Years Used Date Smoking Tobacco: Every Day Cigarettes Smokeless Tobacco: Never Tobacco Cessation:Ready to Q uit: Not Asked; Counseling Given: Not Answered Comments:6-8 Cigarettes a day Alcohol Use Standard Drinks/Week Comments Not Currently 0 (1 standard drink = 0.6 oz pur e alcohol) 5 years sober Social Connections Answer Date Recorded Frequency of Communication with Friends and Fami ly Not on file 04/03/2024 Financial Resource Strain Answer Date R ecorded Difficulty of Paying Living Expenses Not on file 07/27/2021 Difficulty of Paying Living Expenses Not on file 07/27/2021 Sex and Gender Information Value Date Recorded Sex Assigned at Not on file Gender Identity Not on file Sexual Orientation Not on file Obstetrics History Last Filed Vital Signs Vital Sign Reading Time Taken Comments Blood Pressure 148/79 04/19/2024 4:46 PM CDT Pulse 83 04/19/2024 4:46 PM CDT Temperature 36.8 ??C (98.3 ??F) 04/19/2024 4:46 PM CD T Respiratory Rate 16 04/19/2024 4:46 PM CDT Oxygen Saturation 94% 04/19/2024 4:46 PM CDT Inhaled Oxygen Concentration - - Weight 75.6 kg (166 lb 9.6 oz) 04/19/2024 4:46 P M CDT Height 165.1 cm (5' 5) 04/19/2024 4:46 PM CDT Body Mass Index 27.72 04/19/2024 4:46 PM CDT Plan of Treatment Upcoming Encounters Date Type Department Care Team (Late st Contact Info) Description 04/24/2024 10:00 AM CDT Appointment [facility] [address] [place] [address] Jayesh Briggs MD [address] [facility] [address] [place] [address] Health Maintenance Due Date Last Done Comments Pneumococcal series for age 6-64 (1 of 2 - PCV) 1978 Tdap 1983 Depression screening for age 12+ 1984 HIV for age 15-65 1987 Hepatitis C screening for age 18-79 1990 Tetanus booster 1992 Colonoscopy through age 75 2017 Lipids for age 45-75 2017 Zoster (shingles) series for age 50+ (1 of 2) 2022 COVID-19 vaccine series ( season) 2024 Influenza for age 50-64 03/31/2024 BMI (ht and wt on same day) for age 18+ 04/03/2025 04/03/2024, 03/14/2022, 12/29/2021 Procedures Procedure Name Priority Date/Time Associated Diagnosis Comments TROPONIN T (HS) ONE TIME Timed 04/19/2024 6:15 PM CDT CBC WITH AUTO DIFFERENTIAL STAT 04/19/2024 5:09 PM CDT TROPONIN T (HS) ACUTE W/2HR REFLEX STAT 04/19/2024 5:09 PM CDT BASIC METABOLIC PANEL STAT 04/19/2024 5:09 PM CDT CBC WITH AUTO DIFFERENTIAL STAT 04/19/2024 5:09 PM CDT EKG 12 LEAD STAT 04/19/2024 4:54 PM CDT APTT CARLOS 01/22/2024 1:[address] [...] CDT from Last 3 Months Results * (ABNORMAL) TROPONIN T (HS) ONE TIME (04/19/2024 6:15 PM CDT) Only the most recent of2 resultswithin the time period is included. TROPONIN T HS 21(H) 6-15 ng/L ng/L 04/19/2024 7:08 PM CDT [facility] Blood BLOOD SPECIMEN / Unknown Venipuncture / Unknown 04/19/2024 6:15 PM CDT 04/19/2024 6:34 PM CDT Anw Ed Triage CHEMISTRY [facility] [address] [place] [address], * (ABNORMAL) TROPONIN T (HS) ACUTE W/2HR REFLEX (04/19/2024 5:09 PM CDT) Only the most recent of2 resultswithin the time period is included. TROPONIN T HS 20(H) 6-15 ng/L ng/L 04/19/2024 6:07 PM CDT [facility] Blood BLOOD SPECIMEN / Unknown Venipuncture / Unknown 04/19/2024 5:09 PM CDT 04/19/2024 5:36 PM CDT Narrative [facility] - 04/19/2024 6:07 PM CDT hs-cTnT (Elecsys Troponin T Gen 5) [...] low risk in emergency department patient population. Anw Ed Triage [facility] [address] [place] [address], [place] * (ABNORMAL) CBC WITH AUTO DIFFERENTIAL (04/19/2024 5:09 PM CDT) [facility] WHITE BLOOD COUNT 17.6(H) 4.5 - 11.0 thou/cu mm 04/19/2024 5:42 PM CDT [facility] RED BLOOD COUNT 4.95 4.30 - 5.90 mil/cu mm 04/19/2024 5:42 PM CDT [facility] HEMOGLOBIN 14.3 13.5 - 17.5 g/dL 04/19/2024 5:42 PM CDT [facility] HEMATOCRIT 41.2 37.0 - 53.0 % 04/19/2024 5:42 PM CDT [facility] MCV 83 80 - 100 fL 04/19/2024 5:42 PM CDT [facility] MCH 28.9 26.0 - 34.0 pg 04/19/2024 5:42 PM CDT [facility] MCHC 34.7 32.0 - 36.0 g/dL 04/19/2024 5:42 PM CDT [facility] RDW 12.6 11.5 - 15.5 % 04/19/2024 5:42 PM CDT [facility] PLATELET COUNT 336 140 - 440 thou/cu mm 04/19/2024 5:42 PM T [facility] MPV 9.1 6.5 - 11.0 fL 04/19/2024 5:42 PM CDT [facility] NRBC 0.0 % 04/19/2024 5:42 PM CDT [facility] ABS NRBC 0.0 thou /cu mm 04/19/2024 5:42 PM CDT [facility] % NEUT 75.1 % 04/19/2024 5:42 PM CDT [facility] % LYMPH 14.3 % 04/19/2024 5:42 PM CDT [facility] % MONO 6.7 % 04/19/2024 5:42 PM CDT [facility] % EOS 2.6 % 04/19/2024 5:42 PM CDT [facility] % BASO 0.9 % 04/19/2024 5:42 PM CDT [facility] % IMMATURE GRAN (METAS,MYELOS,[place] OS) 0.4 % 04/19/2024 5:42 PM CDT [facility] ABSOLUTE NEUTROPHILS 13.2(H) 1.7 - 7.0 thou/cu mm 04/19/2024 5:42 PM CDT [facility] ABSOLUTE LYMPHOCYTES 2.5 0.9 - 2.9 thou/cu mm 04/19/2024 5:42 PM CDT [facility] ABSOLUTE MONOCYTES 1.2(H) <0.9 thou/cu mm 04/19/2024 5:42 PM CDT [facility] ABSOLUTE EOSINOPHILS 0.5(H) <0.5 thou/cu mm 04/19/2024 5:42 PM CDT [facility] ABSOLUTE BASOPHILS 0.2 <0.3 thou/cu mm 04/19/2024 5:42 PM CDT [facility] ABSOLUTE IMMATURE GRANULOCYTES(MET ,MYELOS,PROS) 0.1 <0.3 thou/cu mm 04/19/2024 5:42 PM CDT [facility] Blood BLOOD SPECIMEN / Unknown Venipuncture / Unknown 04/19/2024 5:09 PM CDT 04/19/2024 5:36 PM CDT Anw Ed Triage HEMATOLOGY [facility] [address] [place] [address], * (ABNORMAL) BASIC METABOLIC PANEL (04/19/2024 5:09 PM CDT) Only the most recent of2 resultswithin the time period is included. SODIUM 140 136 - 145 mmol/L 04/19/2024 6:07 PM CDT [facility] POTASSIUM 4.0 3.5 - 5.1 mmol/L 04/19/2024 6:07 PM CDT [facility] CHLORIDE 103 98 - 107 mmol/L 04/19/2024 6:07 PM CDT [facility] CO2,TOTAL 28 22 - 29 mmol/L 04/19/2024 6:07 PM CDT [facility] ANION GAP 9 5 - 18 04/19/2024 6:07 PM CDT [facility] GLUCOSE 101(H) 70 - 99 mg/dL 04/19/2024 6:07 PM CDT [facility] CALCIUM 9.6 8.6 - 10.0 mg/dL 04/19/2024 6:07 PM CDT [facility] BUN 19 6 - 20 mg/dL 04/19/2024 6:07 PM CDT [facility] CREATININE 0.92 0.70 - 1.20 mg/dL 04/19/2024 6:07 PM CDT [facility] BUN/CREAT RATIO 21(H) 10 - 20 6:07 PM CDT [facility] eGFR >90 >90 mL/min/1.7 3m2 04/19/2024 6:07 PM CDT [facility] Comment:As of 2021, eG FR is calculated by the CKD-EPI creatinine equation without race adjustment. ??eGFR can be influenced by muscle mass, exercise, and diet. ??The reported eGFR is an estimation only and is only applicable if the renal function is stable. Blood BLOOD SPECIMEN / Unknown Venipuncture / Unknown 04/19/2024 5:09 PM CDT 04/19/2024 5:36 PM CDT Anw Ed Triage CHEMISTRY [facility] [address] [place] [address], * APTT (01/22/2024 1:59 PM CDT) APTT 35 28 - 36 sec 01/22/2024 2:24 PM CDT [facility] Blood BLOOD SPECIMEN / Unknown Butterfly / Unknown 01/22/2024 1:59 PM CDT 01/22/2024 2:06 PM CDT Narrative [facility] - 01/22/2024 2:24 PM CDT Therapeutic Range: 57-87 seconds Carolann Omalley MD HEMATOLOGY [facility] [address] [place] [address], [place] * CT TRIPLE RULE OUT - DUAL READ (01/22/2024 11:52 AM CDT) Anatomical Region Laterality Modality Computed Tomogra phy 01/22/2024 12:5 0 PM CDT Addenda Addendum by Thomas Holt MD on 01/24/2024 7:27 PM CDT ?[facility] ? Cardiac CT Report ??MRN: ? [id number] ?Name: ? YAN AMBROSE ?: ?1969- ?Scan Date: ?Accession Number: ? [id number] ?Status: ? Final ? Electronically signed by Thomas Holt 12:51:48 VITALS HEIGHT: 66 in ?(168 cm) WEIGHT: 155 lbs ?(70 kgs) BSA: 1.79 m^2 BMI: 25 kg/m^2 BP: 153 / 81 mmHg BASELINE HR: 53 BPM HEART RHYTHM: Normal Sinus Rhythm FINAL IMPRESSION Long area of stenting RCA, stents are patent Moderately severe, potentially flow limiting stenosis proximal LCx. The LAD is diminutive, there is a dominant diagonal branch with complex plaque and moderately severe stenosis proximally. Normal ascending aorta size No DOMENICO thrombus No pericardial effusion. Consider invasive angiography for further assessment. STUDY QUALITY: Study quality is good. CAD-RADS: CAD-RADS Classification 4A/S (>=70% stenosis, stent). LM: There is a <25% LM stenosis. LAD: There is a <25% proximal LAD stenosis. ?? There is a <25% mid LAD stenosis. ?There is no distal LAD stenosis. D1: There is a 50-69% first diagonal stenosis. D2: The second diagonal is normal. D3: The third diagonal is normal. RAMUS: The ramus is normal. LCX: There is a >=70% proximal LCx stenosis. ?There is a <25% mid LCx stenosis. There is no distal LCx stenosis. OM1: The first obtuse marginal is normal. OM2: The second obtuse marginal is normal. OM3: The third obtuse marginal is normal. LEFT PDA: There is a <25% left PDA stenosis. LEFT PLB: The left posterolateral branch is normal. RCA: There is a proximal RCA stent. There is a <25% proximal RCA stenosis. The proximal RCA stent has a 0% stenosis. ?? There is a <25% mid RCA stenosis. There is a mid RCA stent. The mid RCA stent has a 0% stenosis. ?? There is a <25% distal RCA stenosis. RIGHT PDA: The right PDA is normal. RIGHT PLB: The right posterolateral branch is normal. SCAN INFO TEST TYPE: ??Coronary CT Angiography SCANNER INSTRUCTOR PSYCHIATRIC AIDE: ??SIEMENS SCANNER MODEL: ??ShangPin DOSE REDUCTION ALGORITHM: ??Helical with dose modulation PHASE UNITS: ??% START PHASE: ??67 % END PHASE: ??72 % EKG GATED: ??Yes PRE-CONTRAST: ??No POST-CONTRAST: ??Yes 3D RECONSTRUCTION: ??Yes PACEMAKER ?DEVICE: ??No GENERAL ?CONTRAST AGENT ?CONTRAST AGENT USED?: ??Yes ?TYPE: ??Omnipaque 350 ?DOSE: ??120 ml ?RATE: ??6 ml/s ?ROUTE: ??IV ?ARM: ??Right ?BOLUS TECHNIQUE: ??Biphasic ?ADVERSE REACTION: ??No ?SERUM CREATININE: ??0.7 mg/dL ?GFR: ??126.37 ml/min/1.73m^2 ?CREATININE DATE: ?CT CONTRAST REACTION: ??None ?MEDICATION ADMINISTERED DURING SCAN ?TYPE: ??Nitroglycerin, sublingual ?NITROGLYCERIN, TOTAL DOSE: ??0.8 mg ?RADIATION DOSE ?DLP: ??361 ?KV: ??90 ?SETUP ?PATIENT TYPE: ??Emergency Room ?REASON(S) FOR SCAN: ??Chest pain ?ATTENDING PHYSICIAN: ??CAROLANN OMALLEY ?TECHNOLOGIST: ??Renata Marti BILLING Patient Account ?[id number] Report generated by [employer], a product of [employer] Impressions 01/22/2024 12:50 PM CDT No evidence of pulmonary embolus or acute airspace disease. Dictated by Rajendra Urbina MD @ 01/22/2024 12:49:49 PM Please note that all CT scans at this facility use dose modulation, iterative reconstruction, and/or weight-based dosing when appropriate to reduce radiation dose to as low as reasonably achievable. Dictated by: Rajendra Urbina MD @ 01/22/2024 12:50:05 (Electronically Signed) Narrative 01/22/2024 12:50 PM CDT For Patients: ??As a result of the 21st Century Cures Act, medical imaging exams and procedure reports are released immediately into your electronic medical record. ??You may view this report before your referring provider. ?? If you have questions, please contact your health care provider. INDICATION: Chest pain. Cardiac over-read/dual read. TECHNIQUE: CTA chest acquired with 120 cc of Omnipaque 350 IV contrast. Please see Cardiology report for additional technical information. This exam is being performed in conjunction with the services provided by the [facility] ([facility]). COMPARISON: None FINDINGS: No evidence of pulmonary embolus. Main pulmonary artery is normal in caliber. No aneurysm or dissection of the thoracic aorta. Coronary artery calcifications. No pleural or pericardial effusions. No pathologic lymphadenopathy. Soft tissues of the thoracic wall are unremarkable. No pneumothorax. Central airways are patent. Lungs are clear. Visualized upper abdomen is unremarkable. No acute or suspicious osseous abnormality. Carolann Omalley MD CT * (ABNORMAL) CBC W PLT NO DIFF (01/22/2024 9:45 AM CDT) WHITE BLOOD COUNT 13.4(H) 4.5 - 11.0 thou/cu mm 01/22/2024 10:06 AM CDT [facility] RED BLOOD COUNT 4.09(L) 4.30 - 5.90 mil/cu mm 01/22/2024 10:06 AM T [facility] HEMOGLOBIN 11.7(L) 13.5 - 17.5 g/dL 01/22/2024 10:06 AM T [facility] HEMATOCRIT 34.8(L) 37.0 - 53.0 % 01/22/2024 10:06 AM CDT [facility] MCV 85 80 - 100 fL 01/22/2024 10:06 AM T [facility] MCH 28.6 26.0 - 34.0 pg 01/22/2024 10:06 AM T [facility] MCHC 33.6 32.0 - 36.0 g/dL 01/22/2024 10:06 AM T [facility] RDW 13.4 11.5 - 15.5 % 01/22/2024 10:06 AM T [facility] PLATELET COUNT 249 140 - 440 thou/cu mm 01/22/2024 10:06 AM T [facility] MPV 9.0 6.5 - 11.0 fL 01/22/2024 10:06 AM CDT [facility] NRBC 0.0 % 01/22/2024 10:06 AM CDT [facility] ABS NRBC 0.0 thou /cu mm 01/22/2024 10:06 AM CDT [facility] Blood BLOOD SPECIMEN / Unknown Non-Lab Venipuncture / Unknown 01/22/2024 9:45 AM CDT 01/22/2024 9:52 AM CDT Carolann Omalley MD HEMATOLOGY [facility] [address] [place] [address], [place] * EXTRA TUBE BLUE (01/22/2024 9:44 AM CDT) Blood BLOOD SPECIMEN / Unknown Non-Lab Venipuncture / Unknown 01/22/2024 9:44 AM CDT 01/22/2024 9:52 AM CDT Carolann Omalley MD LABORATORY Performing Organization Address City/[facility]/ZIP Co de Phone Number [facility] [address] [place] [address], [place] * EKG 12 LEAD (01/22/2024 8:56 AM CDT) Interpretation Sinus bradycardia Right bundle branch block Abnormal ECG [facility] NOW Ventricular Rate 55 BPM BEYOND NOW Atrial Rate 55 BPM BEYOND NOW P-R Interval 158 ms BEYOND NOW QRS Duration 156 ms BEYOND NOW QT 462 ms BEYOND NOW QTc 441 ms BEYOND NOW P Bell 56 degrees BEYOND NOW R Bell 74 degrees BEYOND NOW T Bell 54 degrees BEYOND NOW 01/22/2024 8:56 AM CDT 01/22/2024 10:45 PM CDT Saman Napier RN EKG ORD Performing Organization Address City/[facility]/ZIP Co de Phone Number [facility] NOW [place], [place] from Last 3 Months Advance Directives [...] 9:03 AM 06/28/2010 4:07 PM Care Teams Fast Food Delivery Driver Relationship Specialty Start Date End Date Christa Burks PA-C [address] [place] [address] PCP - General Emergency Medicine 02/07/22 Pcp, No . 06/22/10
--- OUTSIDE RECORDS SUMMARY | 2024-04-22 12:09 | XMS_ITS | Referral Summary ---
Author Organization [facility] Address [address] [place] [address]. [place] [address] Care Team Providers Care Primary Special Education Teacher Name Role Phone [facility], [facility] Primary Care Provider Allergies No known active [...] Advance Directives For more information, please contact: [phone] * Full Code (Latest Code Status on File) Date Activated Date Inactivated Comments 12/22/2015 9:08 AM 09/02/2018 12:21 PM * Full Code Date Activated Date Inactivated Comments 12/21/2015 12:28 PM 12/22/2015 9:08 AM * Full Code Date Activated Date Inactivated Comments 09/11/2013 6:38 PM 09/14/2013 2:23 PM Care Teams Primary Special Education Teacher Relationship Specialty Start Date End Date Peña Barrera [address] [place] [address] [facility] - General 09/02/18
--- OUTSIDE RECORDS SUMMARY | 2024-04-22 12:09 | XMS_ITS | Clinical Summary ---
Author Organization [facility] Address [address] [place] [address]. [place] [address] Care Team Providers Care Dairy Scientist Name Role Phone Bruce, [facility] Primary Care Provider Allergies No known active [...] Advance Directives For more information, please contact: [phone] * Full Code (Latest Code Status on File) Date Activated Date Inactivated Comments 12/22/2015 9:08 AM 09/02/2018 12:21 PM * Full Code Date Activated Date Inactivated Comments 12/21/2015 12:28 PM 12/22/2015 9:08 AM * Full Code Date Activated Date Inactivated Comments 09/11/2013 6:38 PM 09/14/2013 2:23 PM Care Teams Dairy Scientist Relationship Specialty Start Date End Date Clinic, Pe[facility] [address] [address] PCP - General 09/02/18
--- OUTSIDE RECORDS SUMMARY | 2024-04-22 12:09 | XMS_ITS | Clinical Summary ---
Author Organization [facility] Address [address] [place] [address] Care Team Providers Care Certified Registered Nurse Practitioner Name Role Phone Found, No Pcp MD [...] for each transition of care or referral. [facility] Allergies No known active allergies Medications Medication [...] Insomnia 11/21/2011 Osteoarthritis of multiple joints 11/21/2011 Overview (03/22/2017): Osteoarthrosis involving, or with mention of more than one site, but not specified as generalized, multiple sites Rheumatoid factor positive 11/21/2011 Overview (03/04/2016): RA 14 (0-14) with no clinical inflammatory [...] Cholesterol 2007 Zoster/Shingles (1 of 2) 2022 DTaP/Tdap/Td (2 - Tdap) 08/28/2023 08/28/2013 COVID-19 Vaccine ( - season) 2024 Influenza (#1) 2024 04/19/2020, 09/29, 05/09/2018, Additional history exists Pneumococcal (3 - [...] Recently Relevant to Health Maintenance Care Teams Certified Registered Nurse Practitioner Relationship Specialty Start Date End Date Found, No Pcp, [address] [place] [address] PCP - General 08/29/13
== END 2024-04-22 12:05 | disposition home or self-care (01) ==
PROVIDERS: PCP Physician Assistant Medical; Visit Provider Physician Assistant Medical
DX: R07.9 Chest pain, unspecified (principal); R63.4 Abnormal weight loss; R79.89 Other specified abnormal findings of blood chemistry; R73.01 Impaired fasting glucose; I10 Essential (primary) hypertension; E78.5 Hyperlipidemia, unspecified; I25.10 Atherosclerotic heart disease of native coronary artery without angina pectoris
CPT/HCPCS: 80053; 80306; 82607

== ENCOUNTER 2024-04-26 13:03 | Outpatient (CLI) | payer BC, MEDICAID, SELFPAY ==
--- OUTSIDE RECORDS SUMMARY | 2024-04-26 13:06 | XMS_ITS | Continuity of Care Document ---
Author Organization [facility] Address [address] [place] [address] Phone Care Team Providers Care Applicator Sprayer Name Role Phone Ruy Waddell MD Unavailable Unavailable Allergies, Adverse Reactions, Alerts Substance Reaction Status Criticality No Known Allergies Active No Inform ation Medications Medication Instructions Dosage Effective Dates (start - stop) Status Comments Medical Cannabis (unknown strength) Not Available - Active ROSUVASTATIN CALCIUM (unknown strength) take 1 tablet by oral route every day Not Available - Active MULTIVITAMIN 50 PLUS (unknown strength) Not Available - Active IBUPROFEN (unknown strength) take 1 tablet by oral route 3 times every day with food Not Available - Active ASPIRIN (unknown strength) take 2 tablet by oral route 5 times every day Not Available - Active WELLBUTRIN XL (unknown strength) take 1 tablet by oral route every day Not Available - Active CLOPIDOGREL (unknown strength) take 1 tablet by oral route every day Not Available - Active METOPROLOL SUCCINATE (unknown strength) take 1 tablet by oral route 2 times every day Not Available - Active COTEMPLA XR-ODT (unknown strength) place 1 tablet by translingual route every day on top of tongue, allow to dissolve then swallow in the morning Not Available - Active AMLODIPINE BESYLATE (unknown strength) take 1 tablet by oral route every day Not Available - Active TRAZODONE HCL (unknown strength) take 1 tablet by oral route every day at bedtime Not Available - Active Procedures Procedure Date [...] on Encounter New Pt Eval Moderate [facility], [facility], [address], [place], [place], [id number], [place] tel:[phone] [facility] lower back pain (chief complaint) shoulder pain (chief complaint) knee pain (chief complaint) Body mass index (BMI) 26.0-26.9, adultRadiculopathy , lumbar regionPrimary osteoarthritis of shoulderBilateral primary osteoarthritis of knee 4 Bairon Redmond. [address], [place], [place], [id number], [place]. tel:[phone] Referring Provider: Pema Martinez, [address] [place] [address], [id number]. tel:[phone] [facility], [address], [place], [place], [id number], [place] tel:[phone] [facility] No Information [address], [address], [place], [place], [id number], [place]. tel:[phone] Family History Family Member Type Diagnosis Age At Onset No Information Payers Payer name Insurance type Covered democrat ID Georgianamelania napoles(s) InCorta [id number] [facility] [id number] Social History Type Description Quantity Date Captured [...] to Bilateral primary osteoarthritis of knee - Consider intervent ional treatments for shoulders in the future Related to Primary osteoarthritis of shoulder - Ordered lumbar epi dural steroid injection*[facility] will call to schedule once insurance approves, if you don't hear back within the next week call at [phone] to check the status of your procedure- Ordered physical therapy evaluation- Consider series of lumbar medial branch blocks on the path to radiofrequency ablation- Continue medication management through [facility] - Follow up with nurse practitioner or PA 2 weeks after imaging and injection is complete Related to Radiculopathy, lumbar region Giving encouragement to exercise Related to Body [...] in 04/2019. He was previously seen at [facility] where he received injections in the past. He is currently seen at [facility] for medication management. He received TPIs at [facility] as well. Patient was referred from Pema [...] Mental Status Date Cognitive Assessment Orientation - Joppa ed to time, place, person, situation. Patient Care Teams Name Effective Dates (start - stop) Status Members No Information
--- OUTSIDE RECORDS SUMMARY | 2024-04-26 13:06 | XMS_ITS | Continuity of Care Document ---
Author Organization [facility] Address [address] [place] [address] Phone Care Team Providers Care Marina Manager Name Role Phone Will Jaspal CASTANEDA Unavailable [...] Diagnoses Date Provider Providers Copied on Encounter [facility], [address] [place], [place], [id number] , [place] tel:[phone] [facility] [place] No Information 2 Jaxson Shay. [address] [place], [place], [id number] , [place]. [phone] OFFICE/OUTPA TIENT VISIT, [facility], [address] [place], [place], [id number] , [place] tel: [phone] [facility] low back pain (chief complaint) Encounter for screening, unspecifiedAnxiety disorder, unspecifiedOther buttermaker (current) drug therapyLow back pain 0 Pratibha Ruiz. [address], [place], [id number] , [place]. tel: [phone] Referring Provider: Jaspal Angel, [address] [place] [address] [place], [address] . tel:[phone] [facility], [address] [place] [address], [id number] , [place] tel: [phone] [facility] No Information 0 Kayleigh Mendoza. [facility], [address], [place], [address], [place]. tel: [phone] Family History Family Member Type Diagnosis Age At Onset No Information Payers Payer name Insurance type Covered alliance party ID Authorrosalina napoles(s) [employer] [id number] Social History Type Description Quantity Date Captured [...] Previous GTB bursa and MBBx2 injections through [facility]. Scheduled to complete MBB 09/25 at [facility], pursuing RFA. Most recent imaging completed 06/2019 at [facility]. Previous trial of gabapentin caused aggression [...]
--- OUTSIDE RECORDS SUMMARY | 2024-04-26 13:07 | XMS_ITS | Referral Summary ---
Author Organization [facility] Address [address] [place] [address]. [place] [address] Care Team Providers Care Disease Case Manager Rn Name Role Phone [facility] Provider Allergies No known active [...] Advance Directives For more information, please contact: [phone] * Full Code (Latest Code Status on File) Date Activated Date Inactivated Comments 12/22/2015 9:08 AM 09/02/2018 12:21 PM * Full Code Date Activated Date Inactivated Comments 12/21/2015 12:28 PM 12/22/2015 9:08 AM * Full Code Date Activated Date Inactivated Comments 09/11/2013 6:38 PM 09/14/2013 2:23 PM Care Teams Disease Case Manager Rn Relationship Specialty Start Date End Date Peña Barrera [address] [place] [address] [facility] - General 09/02/18
--- OUTSIDE RECORDS SUMMARY | 2024-04-26 13:07 | XMS_ITS | Clinical Summary ---
Author Organization [facility] Address [address] [place] [address] Care Team Providers Care Pipefitter Name Role Phone Found, No Pcp MD [...] for each transition of care or referral. [facility] Allergies No known active allergies Medications Medication [...] Recently Relevant to Health Maintenance Care Teams Pipefitter Relationship Specialty Start Date End Date Found, No Pcp, [address] [place] [address] PCP - General 08/29/13
--- OUTSIDE RECORDS SUMMARY | 2024-04-26 13:07 | XMS_ITS | Clinical Summary ---
Author Organization [facility] Address [address] [place] [address]. [place] [address] Care Team Providers Care Consulting Solution Manager Name Role Phone Bruce, [facility] Primary Care Provider Allergies No known [...] Advance Directives For more information, please contact: [phone] * Full Code (Latest Code Status on File) Date Activated Date Inactivated Comments 12/22/2015 9:08 AM 09/02/2018 12:21 PM * Full Code Date Activated Date Inactivated Comments 12/21/2015 12:28 PM 12/22/2015 9:08 AM * Full Code Date Activated Date Inactivated Comments 09/11/2013 6:38 PM 09/14/2013 2:23 PM Care Teams Consulting Solution Manager Relationship Specialty Start Date End Date Clinic, Peña Bradley[address] [address] PCP - General 09/02/18
--- OUTSIDE RECORDS SUMMARY | 2024-04-26 13:07 | XMS_ITS | Clinical Summary ---
Author Organization [facility] Address [place], [place] [address] Care Team Providers Care Ed Physicians Name Role Phone Pcp, No Unavailable Unavailable Christa Burks PA-C Primary Care Provider [phone] Allergies No known active allergies Medications Medication [...] 11/23/2021 Active rosuvastatin (CRESTOR) 40 mg tablet Take 40 mg by mouth at bedtime. 12/23/2021 Active aspirin (ECOTRIN) 81 mg enteric coated tablet Take 1 Tablet (81 mg) by mouth once daily. 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 90 Tablet 09/30/2022 Active buprenorphine-na loxone, 8 mg-2 mg, (SUBOXONE) (8-2 mg/tablet) sublingual tablet Place 1 Tablet under the tongue three times daily. Active traZODone (DESYREL) 150 mg tablet Take 450 mg by mouth at bedtime. Active multivit with bfi-UR-ynuemkqd (One-A-Day Men's 50 Plus) 400-370 mcg tab Take 1 Tablet by mouth once daily. Active loratadine (Claritin) 10 mg tablet Take 10 mg by mouth once daily if needed for Allergy Symptoms. Active methylphenidate 36 mg extended-release tablet Take 36 mg by mouth once daily. 03/23/2024 Active buPROPion (WELLBUTRIN SR) 200 mg sustained-releas e tablet Take 200 mg by mouth two times daily. 01/28/2024 Active ibuprofen (ADVIL; MOTRIN) 200 mg tablet Take 800 mg by mouth 2 times daily if needed for Pain. Active buPROPion (Wellbutrin SR) 100 mg Sustained-Releas e tablet Take 100 mg by mouth two times daily. 04/24/2024 Discontinued(Ph armacist change per medication history (E-cancel not sent)) methylphenidate 54 mg extended-release tablet Take 54 mg by mouth once daily. 04/03/2024 Discontinued(Du plicate therapy (E-cancel not sent)) ibuprofen (ADVIL; MOTRIN) 600 mg tablet Take 250 mg by mouth two times daily. 04/24/2024 Discontinued(Ph armacist change per medication history (E-cancel not sent)) Active Problems Problem Noted Date Diagnosed Date Anxiety and depression 01/22/2024 Chronic pain 01/22/2024 Lumbar spinal stenosis 01/22/2024 Angina at rest 01/22/2024 Alcohol use 11/21/2011 Rheumatoid factor positive 11/21/2011 Overview (01/22/2024): RA 14 (0-14) with no clinical inflammatory arthritis Tobacco use disorder 11/21/2011 Encounters Date Type Department Care Team Description 04/24/2024 8:33 AM CDT - 04/24/2024 11:10 AM CDT Hospital Encounter [facility] [address] [place] [address] Jayesh Briggs MD Post-traumatic headache, not intractable, unspecified chronicity pattern (Primary Dx); Cardiovascular symptoms Discharge Disposition: Home Self Care 04/24/2024 Telephone [facility] [address] [place] [address] Renata Nielson RN Pre Procedure 04/24/2024 Prep for Procedure [facility] [address] [place] [address] Renata Nielson RN 04/24/2024 Travel 04/19/2024 4:58 PM CDT - 04/19/2024 9:22 PM CDT Emergency [facility] Emergency Department [address] [place] [address] Carmen Stoll MD Chest pain, unspecified type (Primary Dx) Discharge Disposition: Home Self Care 04/15/2024 10:00 AM CDT Orders Only [facility] [address] [place] [address] Lab 04/15/2024 Travel 04/03/2024 1:30 PM CDT Office Visit [facility] [address] [place] [address] Rajendra Macedo MD CV General Cardiology Est (Last seen Adalid and Ricardo in 2021 - F/U ED visit 01/22/24 referred by Jaclyn Donald NP - Coronary artery disease involving mechoopda coronary artery of mechoopda heart, unspecified whether angina present and Chest pain, unspecified /PT states not feeling good. 04/02pt states he is SOB and has a headache) 04/03/2024 Travel from Last 3 Months Social History Tobacco [...] Care Team (Late st Contact Info) Description 05/01/2024 8:00 AM CDT Appointment [facility] [address] [place] [address] Bill Keenan MD [address] [facility] [address] [place] [address] Health Maintenance Due Date Last Done Comments Pneumococcal series for age 6-64 (1 of 2 - PCV) 1978 Tdap 1983 Depression screening for age 12+ 1984 HIV for age 15-65 1987 Hepatitis C screening for age 18-79 1990 Tetanus booster 1992 Colonoscopy through age 75 2017 Zoster (shingles) series for age 50+ (1 of 2) 2022 COVID-19 vaccine series ( - season) 2024 Influenza for age 50-64 03/31/2024 BMI (ht and wt on same day) for age 18+ 04/03/2025 04/03/2024, 03/14/2022, 12/29/2021 Lipids for age 45-75 04/24/2029 04/24/2024 Procedures Procedure Name Priority Date/Time Associated Diagnosis Comments HEMOGLOBIN A1C Today 04/24/2024 9:04 AM CDT LIPID PANEL Today 04/24/2024 9:04 AM CDT BASIC METABOLIC PANEL Preop 04/24/2024 9:04 AM CDT CBC W PLT NO DIFF Preop 04/24/2024 9:0 4 AM CDT EKG 12 LEAD CARLOS 04/24/2024 8:57 AM CDT EXTRA TUBE GOLD/SST Today 04/24/2024 8 :57 AM CDT TROPONIN T (HS) ONE TIME Timed 04/19/2024 6:15 PM CDT CBC WITH AUTO DIFFERENTIAL STAT 04/19/2024 5:09 PM CDT TROPONIN T (HS) ACUTE W/2HR REFLEX STAT 04/19/2024 5:09 PM CDT BASIC METABOLIC PANEL STAT 04/19/2024 5:09 PM CDT CBC WITH AUTO DIFFERENTIAL STAT 04/19/2024 5:09 PM CDT EKG 12 LEAD STAT 04/19/2024 4:54 PM CDT from Last 3 Months Results * HEMOGLOBIN A1C SCREENING (04/24/2024 9:04 AM CDT) HEMOGLOBIN A1C SCREENING 5.7 <=6.4 % 04/24/2024 4:22 PM CDT [facility] Blood BLOOD SPECIMEN / Unknown Venipuncture / Unknown 04/24/2024 9:04 AM CDT 04/24/2024 9:10 AM CDT Narrative [facility] - 04/24/2024 4:22 PM CDT ? (<5.7%) ?Normal ? (5.7% to 6.4%) ? Indicates prediabetes ? (>=6.5%) ? Confirms diabetes Falsely low levels may be seen with: Recent Transfusion, Recent Significant Blood Loss, Hemolytic Diseases, or Falsely elevated levels may be seen with: Untreated Anemias, Splenectomy Donnie Dhillon MD CHEMISTRY [facility] [address] [place] [address], * (ABNORMAL) CBC with Platelets no Differential (04/24/2024 9:04 AM CDT) WHITE BLOOD COUNT 15.2(H) 4.5 - 11.0 thou/cu mm 04/24/2024 10:11 AM CDT [facility] RED BLOOD COUNT 4.86 4.30 - 5.90 mil/cu mm 04/24/2024 10:11 AM CDT [facility] HEMOGLOBIN 14.0 13.5 - 17.5 g/dL 04/24/2024 10:11 AM T [facility] HEMATOCRIT 40.6 37.0 - 53.0 % 04/24/2024 10:11 AM CDT [facility] MCV 84 80 - 100 fL 04/24/2024 10:11 AM T [facility] MCH 28.8 26.0 - 34.0 pg 04/24/2024 10:11 AM T [facility] MCHC 34.5 32.0 - 36.0 g/dL 04/24/2024 10:11 AM [facility] RDW 12.8 11.5 - 15.5 % 04/24/2024 10:11 AM [facility] PLATELET COUNT 312 140 - 440 thou/cu mm 04/24/2024 10:11 AM T [facility] MPV 8.9 6.5 - 11.0 fL 04/24/2024 10:11 AM T [facility] NRBC 0.0 % 04/24/2024 10:11 AM T [facility] ABS NRBC 0.0 thou /cu mm 04/24/2024 10:11 AM [facility] Blood BLOOD SPECIMEN / Unknown Venipuncture / Unknown 04/24/2024 9:04 AM CDT 04/24/2024 9:10 AM CDT Donnie Dhillon MD HEMATOLOGY [facility] [address] [place] [address], * LIPID PANEL (04/24/2024 9:04 AM CDT) CHOLESTEROL,TOTAL 146 100 - 199 mg/dL 04/24/2024 9:45 AM CDT [facility] Comment: Cholesterol, Total Reference Ranges Desirable <200 mg/dL Borderline 200-239 mg/dL High >=240 mg/dL TRIGLYCERIDES 129 <150 mg/dL 04/24/2024 9:45 AM CDT [facility] HDL CHOLESTEROL 50 >40 mg/dL 9:45 AM CDT [facility] NON-HDL CHOLESTEROL 96 <145 mg/dl 04/24/2024 9:45 AM CDT [facility] CHOL/HDL RATIO 2.92 <4.50 04/24/2024 9:45 AM CDT [facility] LDL CHOLESTEROL 70 <=130 mg/dL 04/24/2024 9:45 AM CDT [facility] VLDL CHOLESTEROL 26 <=30 mg/dL 04/24/2024 9:45 AM CDT [facility] PROVIDER ORDERED STATUS RANDOM 04/24/2024 9:45 AM CDT [facility] Blood BLOOD SPECIMEN / Unknown Venipuncture / Unknown 04/24/2024 9:04 AM CDT 04/24/2024 9:10 AM CDT Donnie Dhillon MD CHEMISTRY [facility] [address] [place] [address], * (ABNORMAL) Basic Metabolic Panel (04/24/2024 9:04 AM CDT) Only the most recent of2 resultswithin the time period is included. SODIUM 137 136 - 145 mmol/L 04/24/2024 9:45 AM T [facility] POTASSIUM 4.3 3.5 - 5.1 mmol/L 04/24/2024 9:45 AM T [facility] CHLORIDE 101 98 - 107 mmol/L 04/24/2024 9:45 AM [facility] CO2,TOTAL 25 22 - 29 mmol/L 04/24/2024 9:45 AM [facility] ANION GAP 11 5 - 18 04/24/2024 9:45 AM T [facility] GLUCOSE 118(H) 70 - 99 mg/dL 04/24/2024 9:45 AM [facility] CALCIUM 9.2 8.6 - 10.0 mg/dL 04/24/2024 9:45 AM [facility] BUN 22(H) 6 - 20 mg/dL 04/24/2024 9:45 AM [facility] CREATININE 0.93 0.70 - 1.20 mg/dL 04/24/2024 9:45 AM [facility] BUN/CREAT RATIO 24(H) 10 - 20 9:45 AM [facility] eGFR >90 >90 mL/min/1.7 3m2 04/24/2024 9:45 AM [facility] Comment:As of 2021, eG FR is calculated by the CKD-EPI creatinine equation without race adjustment. ??eGFR can be influenced by muscle mass, exercise, and diet. ??The reported eGFR is an estimation only and is only applicable if the renal function is stable. Blood BLOOD SPECIMEN / Unknown Venipuncture / Unknown 04/24/2024 9:04 AM CDT 04/24/2024 9:10 AM T Donnie Dhillon MD CHEMISTRY [facility] [address] [place] [address], * EKG - Now (04/24/2024 8:57 AM CDT) Interpretation Normal sinus rhythm Right bundle branch block Abnormal ECG When compared with ECG of 19-Apr-2024 16:54, No significant change was found BEYOND NOW Ventricular Rate 67 BPM BEYOND NOW Atrial Rate 67 BPM BEYOND NOW P-R Interval 130 ms BEYOND NOW QRS Duration 160 ms BEYOND NOW QT 430 ms BEYOND NOW QTc 454 ms BEYOND NOW P Coleridge 54 degrees BEYOND NOW R Col[place] 62 degrees BEYOND NOW T Coleridge 26 degrees BEYOND NOW 04/24/2024 8:57 AM CDT 04/24/2024 5:01 PM CDT Narrative BEYOND NOW - 04/24/2024 5:01 PM CDT Test Indication: pre Donnie Dhillon MD EKG ORD Performing Organization Address City/[facility] Co de Phone Number BEYOND NOW [place], [place] * EXTRA TUBE GOLD/SST (04/24/2024 8:57 AM CDT) Blood BLOOD SPECIMEN / Unknown Extra Tube / Unknown 04/24/2024 8:57 AM CDT 04/24/2024 9:11 AM CDT Jayesh Briggs MD LABORATORY Performing Organization Address City/[facility]/ZIP Co de Phone Number [facility] [address] [place] [address], [place] * (ABNORMAL) TROPONIN T (HS) ONE TIME (04/19/2024 6:15 PM CDT) Pathologist [facility] TROPONIN T HS 21(H) 6-15 ng/L ng/L 04/19/2024 7:08 PM CDT [facility] Blood BLOOD SPECIMEN / Unknown Venipuncture / Unknown 04/19/2024 6:15 PM CDT 04/19/2024 6:34 PM CDT Anw Ed Triage CHEMISTRY Performing Organization Address [facility] Co de Phone Number [facility] [address] [place] [address], [place] * (ABNORMAL) TROPONIN T (HS) ACUTE W/2HR REFLEX (04/19/2024 5:09 PM CDT) TROPONIN T HS 20(H) 6-15 ng/L ng/L 04/19/2024 6:07 PM CDT [facility] Blood BLOOD SPECIMEN / Unknown Venipuncture / Unknown 04/19/2024 5:09 PM CDT 04/19/2024 5:36 PM CDT [facility] - 04/19/2024 6:07 PM CDT hs-cTnT [...] department patient population. Anw Ed Triage CHEMISTRY [facility] [address] [place] [address], [place] * (ABNORMAL) CBC WITH AUTO DIFFERENTIAL (04/19/2024 5:09 PM CDT) WHITE BLOOD COUNT 17.6(H) 4.5 - 11.0 thou/cu mm 04/19/2024 5:42 PM CDT [facility] RED BLOOD COUNT 4.95 4.30 - 5.90 mil/cu mm 04/19/2024 5:42 PM CDT [facility] HEMOGLOBIN 14.3 13.5 - 17.5 g/dL 04/19/2024 5:42 PM CDT [facility] HEMATOCRIT 41.2 37.0 - 53.0 % 04/19/2024 5:42 PM CDT [facility] MCV 83 80 - 100 fL 04/19/2024 5:42 PM CDT [facility] MCH 28.9 26.0 - 34.0 pg 04/19/2024 5:42 PM CDT [facility] MCHC 34.7 32.0 - 36.0 g/dL 04/19/2024 5:42 PM CDT [facility] RDW 12.6 11.5 - 15.5 % 04/19/2024 5:42 PM CDT [facility] PLATELET COUNT 336 140 - 440 thou/cu mm 04/19/2024 5:42 PM CDT [facility] MPV 9.1 6.5 - 11.0 fL 04/19/2024 5:42 PM CDT [facility] NRBC 0.0 % 04/19/2024 5:42 PM CDT [facility] ABS NRBC 0.0 thou /cu mm 04/19/2024 5:42 PM CDT [facility] % NEUT 75.1 % 04/19/2024 5:42 PM CDT [facility] % LYMPH 14.3 % 04/19/2024 5:42 PM CDT [facility] % MONO 6.7 % 04/19/2024 5:42 PM CDT [facility] % EOS 2.6 % 04/19/2024 5:42 PM CDT [facility] % BASO 0.9 % 04/19/2024 5:42 PM CDT [facility] % IMMATURE GRAN (METAS,MYELOS,GA OS) 0.4 % 04/19/2024 5:42 PM CDT [facility] ABSOLUTE NEUTROPHILS 13.2(H) 1.7 - 7.0 thou/cu mm 04/19/2024 5:42 PM CDT [facility] ABSOLUTE LYMPHOCYTES 2.5 0.9 - 2.9 thou/cu mm 04/19/2024 5:42 PM CDT [facility] ABSOLUTE MONOCYTES 1.2(H) <0.9 thou/cu mm 04/19/2024 5:42 PM CDT [facility] ABSOLUTE EOSINOPHILS 0.5(H) <0.5 thou/cu mm 04/19/2024 5:42 PM CDT [facility] ABSOLUTE BASOPHILS 0.2 <0.3 thou/cu mm 04/19/2024 5:42 PM CDT [facility] ABSOLUTE IMMATURE GRANULOCYTES(MET ,MYELOS,PROS) 0.1 <0.3 thou/cu mm 04/19/2024 5:42 PM CDT [facility] Blood BLOOD SPECIMEN / Unknown Venipuncture / Unknown 04/19/2024 5:09 PM CDT 04/19/2024 5:36 PM CDT Anw Ed Triage HEMATOLOGY [facility] [address] [place] [address], [place] from Last 3 Months Advance Directives * [...] 9:03 AM 06/28/2010 4:07 PM Care Teams Ed Physicians Relationship Specialty Start Date End Date Christa Burks PA-C [address] [place] [address] PCP - General Emergency Medicine 02/07/22 Pcp, No . 06/22/10
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
== END 2024-04-26 13:04 | disposition home or self-care (01) ==
PROVIDERS: PCP Physician Assistant Medical; Visit Provider Physician Assistant Medical
DX: R51.9 Headache, unspecified (principal); G89.29 Other chronic pain
CPT/HCPCS: 70450

== ENCOUNTER 2024-04-30 13:40 | Outpatient (CLI) | payer BC, SELFPAY ==
--- OUTSIDE RECORDS SUMMARY | 2024-04-30 13:45 | XMS_ITS | Continuity of Care Document ---
Author Organization [facility] Address [address] [place] [address] Phone Care Team Providers Care Hoop Puncher Name Role Phone Will Jaspal CASTANEDA Unavailable [...] Diagnoses Date Provider Providers Copied on Encounter [facility], [address] [place], [place], [id number] , [place] tel:[phone] [facility] [place] No Information 2 Jaxson Shay. [address] [place], [place], [id number] , [place]. tel: [phone] OFFICE/OUTPA TIENT VISIT, [facility], [address] [place], [place], [id number] , [place] tel: [phone] [facility] low back pain (chief complaint) Encounter for screening, unspecifiedAnxiety disorder, unspecifiedOther custodial (current) drug therapyLow back pain 0 Pratibha Ruiz. [address], [place], [id number] , [place]. tel: [phone] Referring Provider: Jaspal Angel, [address] [facility] [place], [address] . tel:[phone] [facility], [address] [place] [address], [id number] , [place] tel: [phone] [facility] No Information 0 Kayleigh Mendoza. brotips, [address], [place], [address], [place]. tel: [phone] Family History Family Member Type Diagnosis Age At Onset No Information Payers Payer name Insurance type Covered alliance party ID Authorrosalina napoles(s) [employer] [id number] Social History Type Description Quantity Date Captured Comments Sex Male Smoking Status No Information Chief Complaint And Reason For Visit No Information Reason For Referral Reason For Referral No Information Plan Of Treatment Date Type Action Status Goal Tobacco cessation counseling completed History Of Present Illness Encounter Date Complaint History Of Prese nt Illness low back pain (comments) Roque wang s [...] Previous GTB bursa and MBBx2 injections through [facility]. Scheduled to complete MBB 09/25 at [facility], pursuing RFA. Most recent imaging completed 06/2019 at [facility]. Previous trial of gabapentin caused aggression and increased headaches. Ongoing use of celebrex with benefit.Patient requests to have [facility] assume medication management - currently Rx'd by PCP low back pain Onset: sudden wi th [...] down, pain meds/drugs, rest, sitting and standing. Functional Status Date Functional Assessmen t No Information Instructions Date Instruction Additional Infor mation No Information Assessments Type Assessment Date No Information Patient Care Teams Name Effective Dates (start - stop) Status Members No Information
--- OUTSIDE RECORDS SUMMARY | 2024-04-30 13:45 | XMS_ITS | Continuity of Care Document ---
Author Organization [facility] Address [address] [place] [address] Phone Care Team Providers Care Sheeter Machine Operator Name Role Phone Ruy Waddell MD Unavailable [...] on Encounter New Pt Eval Moderate [facility], [facility], [address] [place], [place], [place], [id number], [place] tel:[phone] [facility] lower back pain (chief complaint) shoulder pain (chief complaint) knee pain (chief complaint) Body mass index (BMI) 26.0-26.9, adultRadiculopathy , lumbar regionPrimary osteoarthritis of shoulderBilateral primary osteoarthritis of knee 4 Bairon Redmond. [address] [place], [place], [place], [id number], [place]. tel:[phone] Referring Provider: Pema Martinez, [address] [place] [address], [address]. tel:[phone] [facility], [address], [place], [place], [id number], [place] tel:[phone] [facility] No Information 4 RN RN. [address], [place], [place], [id number], [place]. tel:[phone] Family History Family Member Type Diagnosis Age At Onset No Information Payers Payer name Insurance type Covered green party ID Georgianamelania napoles(s) [employer] [id number] [facility] [id number] Social History Type Description Quantity Date Captured [...] back within the next week call at [phone] to check the status of your procedure- Ordered physical therapy evaluation- Consider series of lumbar medial branch blocks on the path to radiofrequency ablation- Continue medication management through [facility] - Follow up with nurse practitioner or [...] in 04/2019. He was previously seen at [facility] where he received injections in the past. He is currently seen at [facility] for medication management. He received TPIs at [facility] as well. Patient was referred from [facility] [...] Mental Status Date Cognitive Assessment Orientation - [place] ed to time, place, person, situation. Patient Care Teams Name Effective Dates (start - stop) Status Members No Information
--- OUTSIDE RECORDS SUMMARY | 2024-04-30 13:46 | XMS_ITS | Clinical Summary ---
Author Organization [facility] Address [address] [place] [address]. [place] [address] Care Team Providers Care Coordinator Of Rehabilitation Services Name Role Phone Bruce, [facility] Primary Care Provider Allergies No known active [...] Advance Directives For more information, please contact: [phone] * Full Code (Latest Code Status on File) Date Activated Date Inactivated Comments 12/22/2015 9:08 AM 09/02/2018 12:21 PM * Full Code Date Activated Date Inactivated Comments 12/21/2015 12:28 PM 12/22/2015 9:08 AM * Full Code Date Activated Date Inactivated Comments 09/11/2013 6:38 PM 09/14/2013 2:23 PM Care Teams Coordinator Of Rehabilitation Services Relationship Specialty Start Date End Date Clinic, [facility] [address] [address] PCP - General 09/02/18
--- OUTSIDE RECORDS SUMMARY | 2024-04-30 13:46 | XMS_ITS | Clinical Summary ---
Author Organization [employer] Address [address] [place] [address] Care Team Providers Care Ice Cream Server Name Role Phone Found, No Pcp MD [...] for each transition of care or referral. [employer] Allergies No known active allergies Medications Medication [...] Recently Relevant to Health Maintenance Care Teams Ice Cream Server Relationship Specialty Start Date End Date Found, No Pcp, [address] [place] [address] PCP - General 08/29/13
--- OUTSIDE RECORDS SUMMARY | 2024-04-30 13:46 | XMS_ITS | Referral Summary ---
Author Organization [facility] Address [address] [place] [address]. [place] [address] Care Team Providers Care Client Development Manager Name Role Phone Bruce, [facility] [place] Primary Care Provider Allergies No known active [...] Advance Directives For more information, please contact: [phone] * Full Code (Latest Code Status on File) Date Activated Date Inactivated Comments 12/22/2015 9:08 AM 09/02/2018 12:21 PM * Full Code Date Activated Date Inactivated Comments 12/21/2015 12:28 PM 12/22/2015 9:08 AM * Full Code Date Activated Date Inactivated Comments 09/11/2013 6:38 PM 09/14/2013 2:23 PM Care Teams Client Development Manager Relationship Specialty Start Date End Date Peña Barrera [address] [place] [id number] [facility] - General 09/02/18
--- OUTSIDE RECORDS SUMMARY | 2024-04-30 13:46 | XMS_ITS | Clinical Summary ---
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 90 Tablet 09/30/2022 Active buprenorphine-na loxone, 8 mg-2 mg, (SUBOXONE) (8-2 mg/tablet) sublingual tablet Place 1 Tablet under the tongue three times daily. Active traZODone (DESYREL) 150 mg tablet Take 450 mg by mouth at bedtime. Active multivit with ufm-WG-swkmryvy (One-A-Day Men's 50 Plus) 400-370 mcg tab [...] Encounters Date Type Department Care Team Description 04/30/2024 Telephone [facility] [address] [place] [id number] Research, Mhif 04/30/2024 Telephone [facility] [address] [place] [address] Stefania Parada RN Pre Procedure 04/24/2024 8:33 AM CDT - 04/24/2024 11:10 AM CDT Hospital Encounter [facility] [address] [place] [address] Jayesh Briggs MD Post-traumatic headache, not intractable, unspecified chronicity pattern (Primary Dx); Cardiovascular symptoms Discharge Disposition: Home Self Care 04/24/2024 Telephone [facility] [address] [place] [address] Renata Nielson RN Pre Procedure 04/24/2024 Prep for Procedure [facility] [address] [place] [address] Renata Nielson RN 04/24/2024 Travel 04/19/2024 4:58 PM CDT - 04/19/2024 9:22 PM CDT Emergency [facility] Emergency Department [address] [place] [address] Carmen Stoll MD Chest pain, unspecified type (Primary Dx) Discharge Disposition: Home Self Care 04/15/2024 10:00 AM CDT Orders Only [facility] [address] [facility] [address] [place] [address] Lab 04/15/2024 Travel 04/03/2024 1:30 PM CDT Office Visit [facility] [address] [facility] [address] [place] [address] Rajendra Macedo MD CV General Cardiology Est (Last seen Adalid and Ricardo in 2021 - F/U ED visit 01/22/24 referred by Jaclyn Donald NP - Coronary artery disease involving [place] coronary artery of [place] heart, unspecified whether angina present and Chest [...] Info) Description 05/01/2024 8:00 AM CDT Appointment [facility] [address] [place] [address] Bill Keenan MD [address] [facility] [address] [place] [address] Health Maintenance Due Date Last Done Comments [...] 5.7 <=6.4 % 04/24/2024 4:22 PM CDT [facility] Blood BLOOD SPECIMEN / Unknown Venipuncture / Unknown 04/24/2024 9:04 AM CDT 04/24/2024 9:10 AM CDT Narrative [facility] - 04/24/2024 4:22 PM CDT ? (<5.7%) ?Normal ? (5.7% to 6.4%) ? Indicates prediabetes ? (>=6.5%) ? Confirms diabetes Falsely low levels may be seen with: Recent Transfusion, Recent Significant Blood Loss, Hemolytic Diseases, or Falsely elevated levels may be seen with: Untreated Anemias, Splenectomy Donnie Dhillon MD CHEMISTRY [facility] [address] [place] [address], * (ABNORMAL) CBC with Platelets no Differential (04/24/2024 9:04 AM CDT) WHITE BLOOD COUNT 15.2(H) 4.5 - 11.0 thou/cu mm 04/24/2024 10:11 AM CDT [facility] RED BLOOD COUNT 4.86 4.30 - 5.90 mil/cu mm 04/24/2024 10:11 AM T [facility] HEMOGLOBIN 14.0 13.5 - 17.5 g/dL 04/24/2024 10:11 AM T [facility] HEMATOCRIT 40.6 37.0 - 53.0 % 04/24/2024 10:11 AM CDT [facility] MCV 84 80 - 100 fL 04/24/2024 10:11 AM CDT [facility] MCH 28.8 26.0 - 34.0 pg 04/24/2024 10:11 AM CDT [facility] MCHC 34.5 32.0 - 36.0 g/dL 04/24/2024 10:11 AM CDT [facility] RDW 12.8 11.5 - 15.5 % 04/24/2024 10:11 AM CDT [facility] PLATELET COUNT 312 140 - 440 thou/cu mm 04/24/2024 10:11 AM CDT [facility] MPV 8.9 6.5 - 11.0 fL 04/24/2024 10:11 AM CDT [facility] NRBC 0.0 % 04/24/2024 10:11 AM CDT [facility] ABS NRBC 0.0 thou /cu mm 04/24/2024 10:11 AM CDT [facility] Blood BLOOD SPECIMEN / Unknown Venipuncture / Unknown 04/24/2024 9:04 AM CDT 04/24/2024 9:10 AM CDT Donnie Dhillon MD HEMATOLOGY [facility] [address] [place] [address], * LIPID PANEL (04/24/2024 9:04 AM CDT) CHOLESTEROL,TOTAL 146 100 - 199 mg/dL 04/24/2024 9:45 AM CDT [facility] Comment: Cholesterol, Total Reference Ranges Desirable <200 mg/dL Borderline 200-239 mg/dL High >=240 mg/dL TRIGLYCERIDES 129 <150 mg/dL 04/24/2024 9:45 AM CDT [facility] HDL CHOLESTEROL 50 >40 mg/dL 9:45 AM CDT [facility] NON-HDL CHOLESTEROL 96 <145 mg/dl 04/24/2024 9:45 AM CDT [facility] CHOL/HDL RATIO 2.92 <4.50 04/24/2024 9:45 AM CDT [facility] LDL CHOLESTEROL 70 <=130 mg/dL 04/24/2024 9:45 AM CDT [facility] VLDL CHOLESTEROL 26 <=30 mg/dL 04/24/2024 9:45 AM CDT [facility] PROVIDER ORDERED STATUS RANDOM 04/24/2024 9:45 AM CDT [facility] Blood BLOOD SPECIMEN / Unknown Venipuncture / Unknown 04/24/2024 9:04 AM CDT 04/24/2024 9:10 AM CDT Donnie Dhillon MD CHEMISTRY [facility] [address] [place] [address], * (ABNORMAL) Basic Metabolic Panel (04/24/2024 9:04 AM CDT) Only the most recent of2 resultswithin the time period is included. SODIUM 137 136 - 145 mmol/L 04/24/2024 9:45 AM T [facility] POTASSIUM 4.3 3.5 - 5.1 mmol/L 04/24/2024 9:45 AM T [facility] CHLORIDE 101 98 - 107 mmol/L 04/24/2024 9:45 AM T [facility] CO2,TOTAL 25 22 - 29 mmol/L 04/24/2024 9:45 AM T [facility] ANION GAP 11 5 - 18 04/24/2024 9:45 AM [facility] GLUCOSE 118(H) 70 - 99 mg/dL 04/24/2024 9:45 AM T [facility] CALCIUM 9.2 8.6 - 10.0 mg/dL 04/24/2024 9:[address] [facility] BUN 22(H) 6 - 20 mg/dL 04/24/2024 9:45 AM [facility] CREATININE 0.93 0.70 - 1.20 mg/dL 04/24/2024 9:45 AM [facility] BUN/CREAT RATIO 24(H) 10 - 20 9:[address] [facility] eGFR >90 >90 mL/min/1.7 3m2 04/24/2024 9:[address] [facility] Comment:As of 2021, eG FR is calculated by the CKD-EPI creatinine equation without race adjustment. ??eGFR can be influenced by muscle mass, exercise, and diet. ??The reported eGFR is an estimation only and is only applicable if the renal function is stable. Blood BLOOD SPECIMEN / Unknown Venipuncture / Unknown 04/24/2024 9:04 AM CDT 04/24/2024 9:10 AM CDT Donnie Dhillon MD CHEMISTRY Performing Organization Address City/[facility]/ZIP Co de Phone Number [facility] [address] [place] [address], * EKG - Now (04/24/2024 8:57 AM CDT) Pathologist [facility] Interpretation Normal sinus rhythm Right bundle branch block Abnormal ECG When compared with ECG of 19-Apr-2024 16:54, No significant change was found [facility] NOW Ventricular Rate 67 BPM BEYOND NOW Atrial Rate 67 BPM [facility]YOND NOW P-R Interval 130 ms BEYOND NOW QRS Duration 160 ms BEYOND NOW QT 430 ms [facility] NOW QTc 454 ms BEYOND NOW P Bonnyman 54 degrees BEYOND NOW R Bonnyman 62 degrees BEYOND NOW T Bonnyman 26 degrees BEYOND NOW 04/24/2024 8:57 AM CDT 04/24/2024 5:01 PM CDT Narrative [facility] - 04/24/2024 5:01 PM CDT Test Indication: pre Donnie Dhillon MD EKG ORD Performing Organization Address City/[facility] Co de Phone Number [facility] [place], [place] * EXTRA TUBE GOLD/SST (04/24/2024 8:57 AM CDT) Blood BLOOD SPECIMEN / Unknown Extra Tube / Unknown 04/24/2024 8:57 AM CDT 04/24/2024 9:11 AM CDT Jayesh Briggs MD LABORATORY [facility]ENTER [facility] [address] [place] [address], * (ABNORMAL) TROPONIN T (HS) ONE TIME (04/19/2024 6:15 PM CDT) Pathologist [facility] TROPONIN T HS 21(H) 6-15 ng/L ng/L 04/19/2024 7:08 PM CDT [facility] Blood BLOOD SPECIMEN / Unknown Venipuncture / Unknown 04/19/2024 6:15 PM CDT 04/19/2024 6:34 PM CDT Anw Ed T[facility] [address] [place] [address], * (ABNORMAL) TROPONIN T (HS) ACUTE W/2HR REFLEX (04/19/2024 5:09 PM CDT) TROPONIN T HS 20(H) 6-15 ng/L ng/L 04/19/2024 6:07 PM CDT [facility] Blood BLOOD SPECIMEN / Unknown Venipuncture / Unknown 04/19/2024 5:09 PM CDT 04/19/2024 5:36 PM CDT Narrative [facility] - 04/19/2024 6:07 PM CDT [id number] [...] department patient population. Anw Ed Triage CHEMISTRY [facility] [address] [place] [address], * (ABNORMAL) CBC WITH AUTO DIFFERENTIAL (04/19/2024 5:09 PM CDT) WHITE BLOOD COUNT 17.6(H) 4.5 - 11.0 thou/cu mm 04/19/2024 5:42 PM CDT [facility] RED BLOOD COUNT 4.95 4.30 - 5.90 mil/cu mm 04/19/2024 5:42 PM CDT [facility] HEMOGLOBIN 14.3 13.5 - 17.5 g/dL 04/19/2024 5:42 PM CDT [facility] HEMATOCRIT 41.2 37.0 - 53.0 % 04/19/2024 5:42 PM CDT [facility] MCV 83 80 - 100 fL 04/19/2024 5:42 PM CDT [facility] MCH 28.9 26.0 - 34.0 pg 04/19/2024 5:42 PM CDT [facility] MCHC 34.7 32.0 - 36.0 g/dL 04/19/2024 5:42 PM CDT [facility] RDW 12.6 11.5 - 15.5 % 04/19/2024 5:42 PM CDT [facility] PLATELET COUNT 336 140 - 440 thou/cu mm 04/19/2024 5:42 PM CDT [facility] MPV 9.1 6.5 - 11.0 fL 04/19/2024 5:42 PM CDT [facility] NRBC 0.0 % 04/19/2024 5:42 PM CDT [facility] ABS NRBC 0.0 thou /cu mm 04/19/2024 5:42 PM CDT [facility] % NEUT 75.1 % 04/19/2024 5:42 PM CDT [facility] % LYMPH 14.3 % 04/19/2024 5:42 PM CDT [facility] % MONO 6.7 % 04/19/2024 5:42 PM CDT [facility] % EOS 2.6 % 04/19/2024 5:42 PM CDT [facility] % BASO 0.9 % 04/19/2024 5:42 PM CDT [facility] % IMMATURE GRAN (METAS,MYELOS,WV OS) 0.4 % 04/19/2024 5:42 PM CDT [facility] ABSOLUTE NEUTROPHILS 13.2(H) 1.7 - 7.0 thou/cu mm 04/19/2024 5:42 PM CDT [facility] ABSOLUTE LYMPHOCYTES 2.5 0.9 - 2.9 thou/cu mm 04/19/2024 5:42 PM CDT [facility] ABSOLUTE MONOCYTES 1.2(H) <0.9 thou/cu mm 04/19/2024 5:42 PM CDT [facility] ABSOLUTE EOSINOPHILS 0.5(H) <0.5 thou/cu mm 04/19/2024 5:42 PM CDT [facility] ABSOLUTE BASOPHILS 0.2 <0.3 thou/cu mm 04/19/2024 5:42 PM CDT [facility] ABSOLUTE IMMATURE GRANULOCYTES(MET ,MYELOS,PROS) 0.1 <0.3 thou/cu mm 04/19/2024 5:42 PM CDT [facility] Blood BLOOD SPECIMEN / Unknown Venipuncture / Unknown 04/19/2024 5:09 PM CDT 04/19/2024 5:36 PM CDT Anw Ed T[facility] [address] [place] [address], [place] from Last 3 Months Advance Directives [...] 9:03 AM 06/28/2010 4:07 PM Care Teams Forensic Sergeant Relationship Specialty Start Date End Date Christa Burks PA-C [address] [place] [address] PCP - General Emergency Medicine 02/07/22 Pcp, No . 06/22/10
--- NOTE | 2024-04-30 14:00 | CRLHL7_ITS ---
For Patients: As a result of the Cures Act, medical imaging exams and procedure reports are released immediately into your electronic medical record. You may view this report before your referring provider. If you have questions, please contact your health care provider. CLINICAL HISTORY: hyperlipidemia, blurred vision TECHNIQUE: The carotid circulations and the vertebral arteries in the neck were examined with river-scale ultrasound, color-flow and Doppler spectral analysis. Degrees of stenosis were determined using SRU 2002 Consensus Panel Criteria. FINDINGS: Sonographic images demonstrate bilateral atherosclerotic plaque formation without suspicious soft tissue mass. There was antegrade blood flow demonstrated within the vertebral arteries and the subclavian arteries demonstrated a normal triphasic waveform. The spectral Doppler tracings of the common carotid, internal and external carotid arteries demonstrate no abnormal turbulence or spectral broadening. There was elevation of peak systolic blood flow within right distal ICA measuring 134 cm/second and within the mid right ICA measuring 127 cm/second which would indicate a hemodynamically-significant stenosis by SRU criteria. The ICA/CCA peak systolic velocity ratio measures 1.4 on the right and 1.0 on the left. IMPRESSION: 50-69 percent stenosis of the right mid and distal ICA. Less than 50 percent stenosis of the left ICA. Dictated by Josue Gilbert MD @ 04/30/2024 10:35:03 PM (Electronically Signed)
--- NOTE | 2024-04-30 15:30 | CRLHL7_ITS ---
For Patients: As a result of the Century Cures Act, medical imaging exams and procedure reports are released immediately into your electronic medical record. You may view this report before your referring provider. If you have questions, please contact your health care provider. Indication: WEIGHT LOSS, RIGHT SIDE ABDOMINAL PAIN, NAUSEA, vomiting Technique: CT Abdomen/Pelvis WITH 80CC`S ISOVUE 370 AND WATER prep Please note that all CT scans at this facility use dose modulation, iterative reconstruction, and/or weight-based dosing when appropriate to reduce radiation dose to as low as reasonably achievable. Comparison: None Findings: The lung bases are clear. Mild diffuse hepatic steatosis is present. The spleen is normal. 1.6 cm left adrenal nodule. Right adrenal gland normal. Simple cyst upper pole right kidney measures 1.4 cm. 4.1 millimeter nonobstructing stone lower pole right kidney. The pancreas is normal. Normal gallbladder. No hiatal hernia. The bladder is normal. Vasectomy clips are present. The prostate is nonenlarged. The appendix is within normal limits. No bowel obstruction, free air, free fluid or adenopathy. Atherosclerotic changes. No aneurysm. Unilateral pars defect on the left at L5. No spondylolisthesis. No vertebral body compression fracture. Mild multilevel discogenic spurring. Mild spurring at both hip joints. 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 Impression: Mild hepatic steatosis. Nonobstructing 4 millimeter stone in the lower pole of the right kidney. Indeterminate 1.6 cm left adrenal nodule. Dedicated adrenal CT workup recommended. Increased stool within the right side of the colon without inflammatory change or bowel obstruction. Normal appendix. Please note that all CT scans at this facility use dose modulation, iterative reconstruction, and/or weight-based dosing when appropriate to reduce radiation dose to as low as reasonably achievable. Dictated by Josue Gilbert MD @ 05/01/2024 9:28:05 AM (Electronically Signed)
== END 2024-04-30 13:41 | disposition home or self-care (01) ==
LOC: US 13:40
PROVIDERS: PCP Physician Assistant Medical; Visit Provider Physician Assistant Medical
DX: R63.4 Abnormal weight loss (principal); N20.0 Calculus of kidney; K76.0 Fatty (change of) liver, not elsewhere classified; R10.9 Unspecified abdominal pain; E27.9 Disorder of adrenal gland, unspecified; R11.2 Nausea with vomiting, unspecified; E78.5 Hyperlipidemia, unspecified; I25.10 Atherosclerotic heart disease of native coronary artery without angina pectoris; G45.9 Transient cerebral ischemic attack, unspecified; H53.8 Other visual disturbances; R51.9 Headache, unspecified; Z72.0 Tobacco use
CPT/HCPCS: 74177; 93880; Q9967

== ENCOUNTER 2024-05-06 10:20 | Outpatient (CLI) | payer BC, SELFPAY ==
--- OUTSIDE RECORDS SUMMARY | 2024-05-06 10:26 | XMS_ITS | Clinical Summary ---
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 90 Tablet 09/30/2022 Active buprenorphine-na loxone, 8 mg-2 mg, (SUBOXONE) (8-2 mg/tablet) sublingual tablet Place 1 Tablet under the tongue three times daily. Active traZODone (DESYREL) 150 mg tablet Take 450 mg by mouth at bedtime. Active multivit with elz-PU-alreimtv (One-A-Day Men's 50 Plus) 400-370 mcg tab [...] change per medication history (E-cancel not sent)) ibuprofen (ADVIL; MOTRIN) 600 [...] Encounters Date Type Department Care Team Description 05/03/2024 Orders Only [facility] [address] [place] [address] Staff, Other Clinical 1 scan: (1-Ord) [facility] 05/03/2024 Telephone [facility] [address] [place], [place] [id number] Brianna Carmen RN Pre Procedure (Msg left on angio teach vcml) 04/30/2024 Telephone [facility] [address] [facility] [address] [place] [address] Research, if Research (Potential ALL-RISE participating) 04/30/2024 Telephone [facility] [address] [place] [address] Stefania Parada RN Pre Procedure 04/24/2024 8:33 AM CDT - 04/24/2024 11:10 AM CDT Hospital Encounter [facility] [address] [place] [address] Jayesh Briggs MD Post-traumatic headache, not intractable, unspecified chronicity pattern (Primary Dx); Cardiovascular symptoms Discharge Disposition: Home Self Care 04/24/2024 Telephone [facility] [address] [place] [address] Renata Nielson RN Pre Procedure 04/24/2024 Prep for Procedure [facility] [address] [place] [address] Renata Nielson RN 04/24/2024 Travel 04/19/2024 4:58 PM CDT - 04/19/2024 9:22 PM CDT Emergency [facility] Emergency Department [address] [place] [address] Carmen Stoll MD Chest pain, unspecified type (Primary Dx) Discharge Disposition: Home Self Care 04/16/2024 Orders Only [facility] Scanner 1 scan: (1-Ord) [facility], MULTIPLE RESULTS, 04/16/2024 04/15/2024 10:00 AM CDT Orders Only [facility] [address] [place] [address] Lab 04/15/2024 Travel 04/03/2024 1:30 PM CDT Office Visit [facility] [address] [place] [address] Rajendra Macedo MD CV General Cardiology Est (Last seen Adalid and Ricardo in 2021 - F/U ED visit 01/22/24 referred by Jaclyn Donald NP - Coronary artery disease involving [place]ag[place] coronary artery of [place] heart, unspecified whether angina present and Chest [...] 04/19/2024 4:46 PM CDT Plan of Treatment Health Maintenance [...] Procedure Name Priority Date/Time Associated Diagnosis Comments SCAN CORRESP-IMAGING 05/02/2024 2:27 PM CDT HEMOGLOBIN A1C Today 04/24/2024 9:04 AM CDT [...] 12 LEAD STAT 04/19/2024 4:54 PM CDT SCAN-LABORATORY REPORT 04/16/2024 12:00 AM CDT from Last 3 Months Results * SCAN CORRESP-IMAGING (05/02/2024 2:27 PM CDT) Anatomical Region Laterality Modality Other Narrative 05/02/2024 2:27 PM CDT Ordered by an unspecified provider. Other Clinical Staff OTHER * HEMOGLOBIN A1C SCREENING (04/24/2024 9:04 AM CDT) HEMOGLOBIN A1C SCREENING 5.7 <=6.4 % 04/24/2024 4:22 PM CDT [facility] Blood BLOOD SPECIMEN / Unknown Venipuncture / Unknown 04/24/2024 9:04 AM CDT 04/24/2024 9:[address] [facility] LABORAT[facility] - 04/24/2024 4:22 PM CDT ? (<5.7%) ?Normal ? (5.7% to 6.4%) ? Indicates prediabetes ? (>=6.5%) ? Confirms diabetes Falsely low levels may be seen with: Recent Transfusion, Recent Significant Blood Loss, Hemolytic Diseases, or Falsely elevated levels may be seen with: Untreated Anemias, Splenectomy Donnie Dhillon MD CHEMISTRY [facility] [address] [place] [address], * (ABNORMAL) CBC with Platelets no Differential (04/24/2024 9:04 AM CDT) WHITE BLOOD COUNT 15.2(H) 4.5 - 11.0 thou/cu mm 04/24/2024 10:11 AM [facility] RED BLOOD COUNT 4.86 4.30 - 5.90 mil/cu mm 04/24/2024 10:11 AM [facility] HEMOGLOBIN 14.0 13.5 - 17.5 g/dL 04/24/2024 10:11 AM [facility] HEMATOCRIT 40.6 37.0 - 53.0 % 04/24/2024 10:11 AM [facility] MCV 84 80 - 100 fL 04/24/2024 10:11 AM [facility] MCH 28.8 26.0 - 34.0 pg 04/24/2024 10:11 AM [facility] MCHC 34.5 32.0 - 36.0 g/dL 04/24/2024 10:11 AM [facility] RDW 12.8 11.5 - 15.5 % 04/24/2024 10:11 AM CDT [facility] PLATELET COUNT 312 140 - 440 thou/cu mm 04/24/2024 10:11 AM CDT [facility] MPV 8.9 6.5 - 11.0 fL 04/24/2024 10:11 AM CDT [facility] NRBC 0.0 % 04/24/2024 10:11 AM CDT [facility] ABS NRBC 0.0 thou /cu mm 04/24/2024 10:11 AM T [facility] Blood BLOOD SPECIMEN / Unknown Venipuncture / Unknown 04/24/2024 9:04 AM CDT 04/24/2024 9:10 AM CDT Donnie Dhillon MD HEMATOLOGY [facility] [address] [place] [address], * LIPID PANEL (04/24/2024 9:04 AM CDT) CHOLESTEROL,TOTAL 146 100 - 199 mg/dL 04/24/2024 9:45 AM T [facility] Comment: Cholesterol, Total Reference Ranges Desirable <200 mg/dL Borderline 200-239 mg/dL High >=240 mg/dL TRIGLYCERIDES 129 <150 mg/dL 04/24/2024 9:45 AM CDT [facility] HDL CHOLESTEROL 50 >40 mg/dL 9:45 AM T [facility] NON-HDL CHOLESTEROL 96 <145 mg/dl 04/24/2024 9:45 AM T [facility] CHOL/HDL RATIO 2.92 <4.50 04/24/2024 9:45 AM CDT [facility] LDL CHOLESTEROL 70 <=130 mg/dL 04/24/2024 9:45 AM T [facility] VLDL CHOLESTEROL 26 <=30 mg/dL 04/24/2024 9:45 AM T [facility] PROVIDER ORDERED STATUS RANDOM 04/24/2024 9:45 AM [facility] Blood BLOOD SPECIMEN / Unknown Venipuncture / Unknown 04/24/2024 9:04 AM CDT 04/24/2024 9:10 AM CDT Donnie Dhillon MD CHEMISTRY [facility] [address] [place] [address], * (ABNORMAL) Basic Metabolic Panel (04/24/2024 9:04 AM T) Only the most recent of2 resultswithin the time period is included. SODIUM 137 136 - 145 mmol/L 04/24/2024 9:45 AM [facility] POTASSIUM 4.3 3.5 - 5.1 mmol/L 04/24/2024 9:45 AM [facility] CHLORIDE 101 98 - 107 mmol/L 04/24/2024 9:45 AM [facility] CO2,TOTAL 25 22 - 29 mmol/L 04/24/2024 9:45 AM [facility] ANION GAP 11 5 - 18 04/24/2024 9:45 AM [facility] GLUCOSE 118(H) 70 - 99 mg/dL 04/24/2024 9:45 AM [facility] CALCIUM 9.2 8.6 - 10.0 mg/dL 04/24/2024 9:45 AM [facility] BUN 22(H) 6 - 20 mg/dL 04/24/2024 9:45 AM [facility] CREATININE 0.93 0.70 - 1.20 mg/dL 04/24/2024 9:45 AM [facility] BUN/CREAT RATIO 24(H) 10 - 20 9:45 AM CDT [facility] eGFR >90 >90 mL/min/1.7 3m2 04/24/2024 9:45 AM CDT [facility] Comment:As of 2021, eG [...] 9:10 AM CDT Donnie Dhillon MD [facility] [address] [place] [id number], * EKG - Now (04/24/2024 8:57 AM [...] NOW QTc 454 ms BEYOND NOW P Elwell 54 degrees BEYOND NOW R Elwell 62 degrees BEYOND NOW T Elwell 26 degrees BEYOND NOW 04/24/2024 8:57 AM CDT 04/24/2024 5:01 PM CDT Narrative BEYOND NOW - 04/24/2024 5:01 PM CDT Test Indication: pre Donnie Dhillon MD EKG ORD BEYOND NOW [place], [place] * EXTRA TUBE GOLD/SST (04/24/2024 8:57 AM CDT) Blood BLOOD SPECIMEN / Unknown Extra Tube / Unknown 04/24/2024 8:57 AM CDT 04/24/2024 9:11 AM CDT Jayesh Briggs MD LABORATORY [facility] [address] [place] [address], * (ABNORMAL) TROPONIN T (HS) ONE TIME (04/19/2024 6:15 PM CDT) TROPONIN T HS 21(H) 6-15 ng/L ng/L 04/19/2024 7:08 PM CDT [facility] Blood BLOOD SPECIMEN / Unknown Venipuncture / Unknown 04/19/2024 6:15 PM CDT 04/19/2024 6:34 PM CDT Anw Ed Triage CHEMISTRY [facility] [address] [address], * (ABNORMAL) TROPONIN T (HS) ACUTE W/2HR REFLEX (04/19/2024 5:09 PM CDT) TROPONIN T HS 20(H) 6-15 ng/L ng/L 04/19/2024 6:07 PM CDT [facility] Blood BLOOD SPECIMEN / Unknown Venipuncture / Unknown 04/19/2024 5:09 PM CDT 04/19/2024 5:36 PM CDT Narrative [facility] - 04/19/2024 6:07 PM [...] department patient population. Anw Ed Triage CHEMISTRY [facility] [address] [place] [address], * (ABNORMAL) CBC WITH AUTO DIFFERENTIAL (04/19/2024 5:09 PM CDT) WHITE BLOOD COUNT 17.6(H) 4.5 - 11.0 thou/cu mm 04/19/2024 5:42 PM CDT [facility] RED BLOOD COUNT 4.95 4.30 - 5.90 mil/cu mm 04/19/2024 5:42 PM CDT [facility] HEMOGLOBIN 14.3 13.5 - 17.5 g/dL 04/19/2024 5:42 PM CDT [facility] HEMATOCRIT 41.2 37.0 - 53.0 % 04/19/2024 5:42 PM CDT [facility] MCV 83 80 - 100 fL 04/19/2024 5:42 PM CDT [facility] MCH 28.9 26.0 - 34.0 pg 04/19/2024 5:42 PM CDT [facility] MCHC 34.7 32.0 - 36.0 g/dL 04/19/2024 5:42 PM CDT [facility] RDW 12.6 11.5 - 15.5 % 04/19/2024 5:42 PM CDT [facility] PLATELET COUNT 336 140 - 440 thou/cu mm 04/19/2024 5:42 PM CDT [facility] MPV 9.1 6.5 - 11.0 fL 04/19/2024 5:[facility] NRBC 0.0 % 04/19/2024 5:42 PM CDT [facility] ABS NRBC 0.0 thou /cu mm 04/19/2024 5:42 PM CDT [facility] % NEUT 75.1 % 04/19/2024 5:42 PM [facility] % LYMPH 14.3 % 04/19/2024 5:42 [facility] % MONO 6.7 % 04/19/2024 5:42 PM [facility] % EOS 2.6 % 04/19/2024 5:42 PM [facility] % BASO 0.9 % 04/19/2024 5:42 PM [facility] % IMMATURE GRAN (METAS,MYELOS,MI OS) 0.4 % 04/19/2024 5:42 PM [facility] ABSOLUTE NEUTROPHILS 13.2(H) 1.7 - 7.0 thou/cu mm 04/19/2024 5:42 PM T [facility] ABSOLUTE LYMPHOCYTES 2.5 0.9 - 2.9 thou/cu mm 04/19/2024 5:42 PM T [facility] ABSOLUTE MONOCYTES 1.2(H) <0.9 thou/cu mm 04/19/2024 5:42 PM T [facility] ABSOLUTE EOSINOPHILS 0.5(H) <0.5 thou/cu mm 04/19/2024 5:42 PM T [facility] ABSOLUTE BASOPHILS 0.2 <0.3 thou/cu mm 04/19/2024 5:42 PM CDT [facility] ABSOLUTE IMMATURE GRANULOCYTES(MET ,MYELOS,PROS) 0.1 <0.3 thou/cu mm 04/19/2024 5:42 PM CDT [facility] Blood BLOOD SPECIMEN / Unknown Venipuncture / Unknown 04/19/2024 5:09 PM CDT 04/19/2024 5:36 PM CDT Anw Ed Triage [facility] 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 06/22/10
--- OUTSIDE RECORDS SUMMARY | 2024-05-06 10:26 | XMS_ITS | Clinical Summary ---
Author Organization [facility] Address [address] [place] [address] Care Team Providers Care Rn Women Services Name Role Phone Found, No Pcp MD [...] for each transition of care or referral. [facility] Allergies No known active allergies Medications Medication [...] on patient's age to complete this topic RSV Aged Out No longer eligi ble based [...] Recently Relevant to Health Maintenance Care Teams Rn Women Services Relationship Specialty Start Date End Date Found, No Pcp, [address] [place] [address] PCP - General 08/29/13
--- OUTSIDE RECORDS SUMMARY | 2024-05-06 10:26 | XMS_ITS | Clinical Summary ---
Author Organization [facility] Address [address] [place] [address]. [place] [address] Care Team Providers Care Infrastructure Security Architect Name Role Phone Bruce, [facility] Primary Care Provider Allergies No known active [...] Advance Directives For more information, please contact: [phone] * Full Code (Latest Code Status on File) Date Activated Date Inactivated Comments 12/22/2015 9:08 AM 09/02/2018 12:21 PM * Full Code Date Activated Date Inactivated Comments 12/21/2015 12:28 PM 12/22/2015 9:08 AM * Full Code Date Activated Date Inactivated Comments 09/11/2013 6:38 PM 09/14/2013 2:23 PM Care Teams Infrastructure Security Architect Relationship Specialty Start Date End Date Clinic, Pe[facility] [address] [address] PCP - General 09/02/18
--- OUTSIDE RECORDS SUMMARY | 2024-05-06 10:26 | XMS_ITS | Continuity of Care Document ---
Author Organization [facility] Address [address] [place] [address] Phone Care Team Providers Care Eyelet Riveter Name Role Phone Will Jaspal CASTANEDA Unavailable [...] Date Provider Providers Copied on Encounter [facility], [address] [place], [place], [id number] , [place] tel:[phone] [facility] [place] No Information 2 Jaxson Shay. [address] [place], [place], [id number] , [place]. tel:[phone] OFFICE/OUTPA TIENT VISIT, [facility], [address] [place], [place], [id number] , [place] tel: [phone] [facility] low back pain (chief complaint) Encounter for screening, unspecifiedAnxiety disorder, unspecifiedOther skilled nursing (current) drug therapyLow back pain 0 Pratibha Ruiz. [address], [place], [id number] , [place]. tel: [phone] Referring Provider: Jaspal Angel, [address] [place] [address] [place], [address] . tel:[phone] [facility], [address] [place] [address], [id number] , [place] tel: [phone] [facility] No Information 0 Kayleigh Mendoza. [place] [facility], [address], [place], [address], [place]. tel: [phone] Family History Family Member Type Diagnosis Age At Onset No Information Payers Payer name Insurance type Covered democrat ID Authorrosalina napoles(s) [employer] [id number] Social History Type Description Quantity Date Captured [...] Previous GTB bursa and MBBx2 injections through [facility]. Scheduled to complete MBB 09/25 at [facility], pursuing RFA. Most recent imaging completed 06/2019 at [facility]. Previous trial of gabapentin caused aggression [...]
--- OUTSIDE RECORDS SUMMARY | 2024-05-06 10:26 | XMS_ITS | Referral Summary ---
Author Organization [facility] Address [address] [place] [address]. [place] [address] Care Team Providers Care Human Resource Professional Name Role Phone [facility], [facility] Primary [facility] Provider Allergies No known active [...] Advance Directives For more information, please contact: [phone] * Full Code (Latest Code Status on File) Date Activated Date Inactivated Comments 12/22/2015 9:08 AM 09/02/2018 12:21 PM * Full Code Date Activated Date Inactivated Comments 12/21/2015 12:28 PM 12/22/2015 9:08 AM * Full Code Date Activated Date Inactivated Comments 09/11/2013 6:38 PM 09/14/2013 2:23 PM Care Teams Human Resource Professional Relationship Specialty Start Date End Date Peña Barrera [address] [place] [address] [facility] - General 09/02/18
== END 2024-05-06 10:21 | disposition home or self-care (01) ==
PROVIDERS: PCP Physician Assistant Medical; Visit Provider Physician Assistant Medical
DX: R07.9 Chest pain, unspecified (principal); D72.829 Elevated white blood cell count, unspecified; R63.4 Abnormal weight loss; I10 Essential (primary) hypertension; E78.5 Hyperlipidemia, unspecified; G89.29 Other chronic pain; H53.9 Unspecified visual disturbance; R51.9 Headache, unspecified; R61 Generalized hyperhidrosis; Z12.5 Encounter for screening for malignant neoplasm of prostate; Z01.818 Encounter for other preprocedural examination; Z11.59 Encounter for screening for other viral diseases; Z11.1 Encounter for screening for respiratory tuberculosis
CPT/HCPCS: 83880; 86480; 86703; 86803; G0103

== ENCOUNTER 2024-05-15 12:30 | Outpatient (CLI) | payer BC, SELFPAY ==
--- OUTSIDE RECORDS SUMMARY | 2024-05-15 12:33 | XMS_ITS | Continuity of Care Document ---
Author Organization [facility] Address [address] [place] [address] Phone Care Team Providers Care Property Portfolio Officer Name Role Phone Ruy Waddell MD Unavailable [...] on Encounter New Pt Eval Moderate [facility], [facility], [address], [place], [place], [id number], [place] tel:[phone] [facility] lower back pain (chief complaint) shoulder pain (chief complaint) knee pain (chief complaint) Body mass index (BMI) 26.0-26.9, adultRadiculopathy , lumbar regionPrimary osteoarthritis of shoulderBilateral primary osteoarthritis of knee 4 Bairon Redmond. [address], [place], [place], [id number], [place]. tel:[phone] Referring Provider: Pema Martinez, [address] [place] [address], [address]. tel:[phone] [facility], [address], [place], [place], [id number], [place] tel:[phone] [facility] No Information 4 RN RN. [address], [address], [place], [place], [id number], [place]. tel:[phone] Family History Family Member Type Diagnosis Age At Onset No Information Payers Payer name Insurance type Covered libertarian ID Georgianamelania napoles(s) [employer] [id number] [facility] [id number] Social History Type Description Quantity Date Captured [...] back within the next week call at [phone] to check the status of your procedure- Ordered physical therapy evaluation- Consider series of lumbar medial branch blocks on the path to radiofrequency ablation- Continue medication management through [facility] - Follow up with nurse [...] in 04/2019. He was previously seen at [facility] where he received injections in the past. He is currently seen at [facility] for medication management. He received TPIs at [facility] well. Patient was referred from [facility] [...] Mental Status Date Cognitive Assessment Orientation - [place] ed to time, place, person, situation. Patient Care Teams Name Effective Dates (start - stop) Status Members No Information
--- OUTSIDE RECORDS SUMMARY | 2024-05-15 12:33 | XMS_ITS | Clinical Summary ---
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 90 Tablet 09/30/2022 Active buprenorphine-na loxone, 8 mg-2 mg, (SUBOXONE) (8-2 mg/tablet) sublingual tablet Place 1 Tablet under the tongue three times daily. Active traZODone (DESYREL) 150 mg tablet Take 450 mg by mouth at bedtime. Active multivit with zoi-FM-cbmpempu (One-A-Day Men's 50 Plus) 400-370 mcg tab [...] Encounters Date Type Department Care Team Description 05/07/2024 Lab Requisition [facility] [phone] Christa Burks PA-C 05/03/2024 Orders Only [facility] [address] [place] [address] Staff, Other Clinical 1 scan: (1-Ord) [facility] 05/03/2024 Telephone [facility] [address] [place] [address] Brianna Carmen RN Pre Procedure (Msg left on angio teach vcml) 04/30/2024 [facility] [address] [place] [phone] Research, [facility] Research (Potential [facility] participating) 04/30/2024 Telephone [facility] [address] [place] [address] Stefania Parada RN Pre Procedure 04/24/2024 8:33 AM CDT - 04/24/2024 11:10 AM CDT Hospital Encounter [facility] [address] [place] [address] Jayesh Briggs MD Post-traumatic headache, not intractable, unspecified chronicity pattern (Primary Dx); Cardiovascular symptoms Discharge Disposition: Home Self Care 04/24/2024 Telephone [facility] [address] [address] Renata Nielson RN Pre Procedure 04/24/2024 Prep for Procedure [facility] [address] [place] [address] Renata Nielson RN 04/24/2024 Travel 04/19/2024 4:58 PM CDT - 04/19/2024 9:22 PM CDT Emergency [facility] Emergency Department [address] [place] [address] Carmen Stoll MD Chest pain, unspecified type (Primary Dx) Discharge Disposition: Home Self Care 04/16/2024 Orders Only [facility] Scanner 1 scan: (1-Ord) [facility], MULTIPLE RESULTS, 04/16/2024 04/15/2024 10:00 AM CDT Orders Only [facility] [address] [facility] [address] [place] [address] Lab 04/15/2024 Travel 04/03/2024 1:30 PM CDT Office Visit [facility] [address] [facility] [address] [place] [address] Rajendra Macedo MD CV General Cardiology Est (Last seen Adalid and Ricardo in 2021 - F/U ED visit 01/22/24 referred by Jaclyn Donald NP - Coronary artery disease involving chemehuevi coronary artery of chemehuevi heart, unspecified whether angina present and Chest [...] Procedure Name Priority Date/Time Associated Diagnosis Comments LAB TRACKING EVENT Routine 2024 11 :07 AM CDT PERIPHERAL BLD MORPHOLOGY Routine 2024 11:07 AM CDT RETICULOCYTES Routine 2024 11:07 AM CDT SCAN CORRESP-IMAGING 05/02/2024 2:27 PM CDT HEMOGLOBIN [...] STAT 04/19/2024 4:54 PM CDT SCAN-LABORATORY REPORT 12:00 AM CDT from Last 3 Months Results * LAB TRACKING EVENT (2024 11:07 AM CDT) Other (Other) Client Collect / Unknown 2024 11:07 AM CDT 05/07/2024 12:59 PM CDT Christa Burks PA-C LAB BILL ONLY [facility] [address] [place] [address], * PERIPHERAL BLD MORPHOLOGY (2024 11:07 AM CDT) Case Report Special Hematology Report ? Case: [id number] ? Authorizing Provider: ??Christa Burks PA-C ?Collected: ? 2024 1107 ? Ordering Location: ? [facility] ?Received: ?05/07/2024 1524 ? Pathologist: ? Art Hunter, ? MD ? Specimen: ?Peripheral Blood ? 4 1:44 PM CDT [facility] Final Diagnosis PERIPHERAL BLOOD: 1. Mild leukocytosis with mild absolute neutrophilia, monocytosis and lymphocytosis 2. Flow cytometry negative for monotypic B cells 3. See comment 4 1:44 PM CDT [facility] Comment Neutrophils and monocytes are mildly increased in absolute number but otherwise appear morphologically mature without atypical features. No dysgranulopoiesis or circulating blasts are seen. Lymphocytes are mildly increased in absolute number and predominantly appear small and mature with normal heteromorphous features. The negative flow cytometry results essentially exclude the possibility of a B-cell lymphoproliferative disorder in this sample. This case was also reviewed by Lulú Giang MT, MS (ASC). 4 1:44 PM CDT [facility] Clinical Information The patient is a 54-year-old male. Per CBC scan: Weight loss, leukocytosis, night sweats, and tobacco use. Per EPIC: Additional history includes alcohol use and positive rheumatoid factor. Peripheral blood morphology 2011 ([id number]) showed mild leukocytosis with neutrophilia and lymphocytosis. FISH for BCR/ABL was negative. 4 1:44 PM CDT [facility] CBC and Differential HEMATOLOGY PARAMETERS Tested at: ??[facility] ? RESULTS ??EXPECTED VALUES WBC: ? 17.5 ? 4.5-40m0790/cumm ?ELEVATED RBC: ? 5.27 ? 4.30-5.90 mil/cumm HGB: ? 15.2 ? 13.5-17.5 gm/di ? HCT: ? 45.3 ? 37-53% ? MCV: ? 86.0 ? 80-100 fl ? NORMOCYTIC MCH: ? 28.8 ? 26-34 pg ? MCHC: ?33.6 ? 32-36 gm/dl ? NORMOCHROMIC RDW: ? 12.8 ? 11.5-15.5% ? PLT: ? 333 ?140-408g4334/uL ? Differential ?Absolute (%) ?Expected (%) ?(x10*9/L) ? (x10*9/L) Neutrophils: ?11.9 (68) ? 1.7-7.0 (42-72%) ??ELEVATED Lymphocytes: ?4.0 (22.9) ?0.9-2.9 (20-44%) ??ELEVATED Monocytes: ?1.1 (6.3) ?<0.9 (0-11%) ? ELEVATED Eosinophils: ?0.4 (2.3) ?<0.5 (0-2%) ? Basophils: ?0.2 (1.1) ?<0.3 (<3.0%) ? 4 1:44 PM CDT [facility] Microscopic Description The final diagnosis is based on microscopic examination of an appropriately stained blood smear. 4 1:44 PM CDT [facility] Flow Cytometry Summary B Cell Screen panel: Interpretation: No monotypic B lymphocytes are detected. Clinical indication for flow cytometry: Evaluate for monotypic B-cells. Percent of Lymphs B cells: 8.0% T cells: 83.5% CD19+/[place]: 4.1% CD19+/Lambda: 3.5% [place]:Lambda ratio: 1.2 B lymphocytes in this analysis demonstrate normal qualitative expression of the following antigens: CD3, CD5, CD10, CD19, CD20, CD45, and [place] and Lambda surface light chains. Quality Assessment Viability (7-AAD): 27% Polytypic B cell events: 307 Nucleated cells analyzed: 8849 Limit of detection (LOD): 0.2% These results and cytograms have been verified by Dr. Hunter. This test was developed and its performance characteristics verified by [facility]. It has not been cleared or approved by the US Food and Drug Administration. This test is used for clinical purposes and should not be regarded as investigational or for research. Analytic Flow Tech: Jessica Mims, 05/09/2024 10:03 AM Verifying Flow Tech: Kinza Benavides, 05/09/2024 10:54 AM 1:44 PM CDT [facility] Additional Information Interpreted at [facility] - [address] [facility] [address] [address] 4 1:44 PM CDT [facility] Blood (Peripheral Blood) 2024 11:07 AM CDT 05/07/2024 3:24 PM CDT Christa Burks PA-C HEMATOLOGY [facility] [address] [place] [address], * RETICULOCYTES (2024 11:07 AM CDT) RETIC% 1.5 0.5 - 1.5 % 05/07/2024 1:15 PM CDT [facility] RETIC (ABSOLUTE) 0.08 0.03 - 0.08 mil/cu mm 05/07/2024 1:15 PM CDT [facility] Blood BLOOD SPECIMEN / Unknown Client Collect / Unknown 2024 11:07 AM CDT 05/07/2024 1:11 PM CDT Christa Burks PA-C HEMATOLOGY Performing Organization Address [facility] Co de Phone Number [facility] [address] [place] [address], * SCAN CORRESP-IMAGING (05/02/2024 2:27 PM CDT) Anatomical Region Laterality Modality Other Narrative 05/02/2024 2:27 PM CDT Ordered by an unspecified provider. Other Clinical Staff OTHER * HEMOGLOBIN A1C SCREENING (04/24/2024 9:04 AM CDT) HEMOGLOBIN A1C SCREENING 5.7 <=6.4 % 04/24/2024 4:22 PM CDT [facility] Blood BLOOD SPECIMEN / Unknown Venipuncture / Unknown 04/24/2024 9:04 AM CDT 04/24/2024 9:10 AM CDT Narrative [facility] - 04/24/2024 4:22 PM CDT ? (<5.7%) ?Normal ? (5.7% to 6.4%) ? Indicates prediabetes ? (>=6.5%) ? Confirms diabetes Falsely low levels may be seen with: Recent Transfusion, Recent Significant Blood Loss, Hemolytic Diseases, or Falsely elevated levels may be seen with: Untreated Anemias, Splenectomy Donnie Dhillon MD CHEMISTRY Performing Organization Address [facility] Co de Phone Number [facility] [address] [place] [address], * (ABNORMAL) CBC with Platelets no Differential (04/24/2024 9:04 AM CDT) WHITE BLOOD COUNT 15.2(H) 4.5 - 11.0 thou/cu mm 04/24/2024 10:11 AM CDT [facility] RED BLOOD COUNT 4.86 4.30 - 5.90 mil/cu mm 04/24/2024 10:11 AM CDT [facility] HEMOGLOBIN 14.0 13.5 - 17.5 g/dL 04/24/2024 10:11 AM T [facility] HEMATOCRIT 40.6 37.0 - 53.0 % 04/24/2024 10:11 AM T [facility] MCV 84 80 - 100 fL 04/24/2024 10:11 AM T [facility] MCH 28.8 26.0 - 34.0 pg 04/24/2024 10:11 AM T [facility] MCHC 34.5 32.0 - 36.0 g/dL 04/24/2024 10:11 AM T [facility] RDW 12.8 11.5 - 15.5 % 04/24/2024 10:11 AM T [facility] PLATELET COUNT 312 140 - 440 thou/cu mm 04/24/2024 10:11 AM T [facility] MPV 8.9 6.5 - 11.0 fL 04/24/2024 10:11 AM T [facility] NRBC 0.0 % 04/24/2024 10:11 AM T [facility] ABS NRBC 0.0 thou /cu mm 04/24/2024 10:11 AM [facility] Blood BLOOD SPECIMEN / Unknown Venipuncture / Unknown 04/24/2024 9:04 AM CDT 04/24/2024 9:10 AM CDT Donnie Dhillon MD HEMATOLOGY [facility] [address] [place], [place] [address] * LIPID PANEL (04/24/2024 9:04 AM CDT) [facility] CHOLESTEROL,TOTAL 146 100 - 199 mg/dL 04/24/2024 9:45 AM CDT [facility] Comment: Cholesterol, Total Reference Ranges Desirable <200 mg/dL Borderline 200-239 mg/dL High >=240 mg/dL TRIGLYCERIDES 129 <150 mg/dL 04/24/2024 9:45 AM CDT [facility] HDL CHOLESTEROL 50 >40 mg/dL 9:45 AM CDT [facility] NON-HDL CHOLESTEROL 96 <145 mg/dl 04/24/2024 9:45 AM CDT [facility] CHOL/HDL RATIO 2.92 <4.50 04/24/2024 9:45 AM CDT [facility] LDL CHOLESTEROL 70 <=130 mg/dL 04/24/2024 9:45 AM T [facility] VLDL CHOLESTEROL 26 <=30 mg/dL 04/24/2024 9:45 AM T [facility] PROVIDER ORDERED STATUS RANDOM 04/24/2024 9:45 AM T [facility] Blood BLOOD SPECIMEN / Unknown Venipuncture / Unknown 04/24/2024 9:04 AM CDT 04/24/2024 9:10 AM CDT Donnie Dhillon MD CHEMISTRY [facility] [address] [place] [address], * (ABNORMAL) Basic Metabolic Panel (04/24/2024 9:04 AM CDT) Only the most recent of2 resultswithin the time period is included. SODIUM 137 136 - 145 mmol/L 04/24/2024 9:45 AM CDT [facility] POTASSIUM 4.3 3.5 - 5.1 mmol/L 04/24/2024 9:45 AM T [facility] CHLORIDE 101 98 - 107 mmol/L 04/24/2024 9:45 AM T [facility] CO2,TOTAL 25 22 - 29 mmol/L 04/24/2024 9:45 AM T [facility] ANION GAP 11 5 - 18 04/24/2024 9:45 AM CDT [facility] GLUCOSE 118(H) 70 - 99 mg/dL 04/24/2024 9:45 AM CDT [facility] CALCIUM 9.2 8.6 - 10.0 mg/dL 04/24/2024 9:45 AM CDT [facility] BUN 22(H) 6 - 20 mg/dL 04/24/2024 9:45 AM CDT [facility] CREATININE 0.93 0.70 - 1.20 mg/dL 04/24/2024 9:45 AM CDT [facility] BUN/CREAT RATIO 24(H) 10 - 20 9:45 AM CDT [facility] eGFR >90 >90 mL/min/1.7 3m2 04/24/2024 9:45 AM CDT [facility] Comment:As of 2021, eG FR [...] 9:10 AM CDT Donnie Dhillon MD CHEMISTRY [facility] [address] [place] [address], * EKG - Now (04/24/2024 8:57 AM [...] NOW QTc 454 ms BEYOND NOW P [place] 54 degrees BEYOND NOW R [place] 62 degrees BEYOND NOW T [place] 26 degrees BEYOND NOW 04/24/2024 8:57 AM CDT 04/24/2024 5:01 PM CDT Narrative [facility] NOW - 04/24/2024 5:01 PM CDT Test Indication: pre Donnie Dhillon MD EKG ORD Performing Organization Address City/[facility]/ZIP Co de Phone Number [facility] NOW [place], [place] * EXTRA TUBE GOLD/SST (04/24/2024 8:57 AM CDT) Blood BLOOD SPECIMEN / Unknown Extra Tube / Unknown 04/24/2024 8:57 AM CDT 04/24/2024 9:11 AM CDT Jayesh Briggs MD LABORATORY Performing Organization Address City/[facility]/ZIP Co de Phone Number [facility] [address] [place] [address], [place] * (ABNORMAL) TROPONIN T (HS) ONE TIME (04/19/2024 6:15 PM CDT) TROPONIN T HS 21(H) 6-15 ng/L ng/L 04/19/2024 7:08 PM CDT [facility] Blood BLOOD SPECIMEN / Unknown Venipuncture / Unknown 04/19/2024 6:15 PM CDT 04/19/2024 6:34 PM CDT Anw Ed Triage CHEMISTRY Performing Organization Address City/[facility]/ZIP Co de Phone Number [facility] [address] [place] [address], [place] * (ABNORMAL) TROPONIN T (HS) ACUTE W/2HR REFLEX (04/19/2024 5:09 PM CDT) TROPONIN T HS 20(H) 6-15 ng/L ng/L 04/19/2024 6:07 PM CDT [facility] Blood BLOOD SPECIMEN / Unknown Venipuncture / Unknown 04/19/2024 5:09 PM CDT 04/19/2024 5:36 PM CDT Narrative [facility] - 04/19/2024 6:07 PM CDT [...] department patient population. Anw Ed Triage CHEMISTRY [facility] [address] [place] [address], * (ABNORMAL) CBC WITH AUTO DIFFERENTIAL (04/19/2024 5:09 PM CDT) [facility] WHITE BLOOD COUNT 17.6(H) 4.5 - 11.0 thou/cu mm 04/19/2024 5:42 PM CDT [facility] RED BLOOD COUNT 4.95 4.30 - 5.90 mil/cu mm 04/19/2024 5:42 PM CDT [facility] HEMOGLOBIN 14.3 13.5 - 17.5 g/dL 04/19/2024 5:42 PM CDT [facility] HEMATOCRIT 41.2 37.0 - 53.0 % 04/19/2024 5:42 PM [facility] MCV 83 80 - 100 fL 04/19/2024 5:42 PM CDT [facility] MCH 28.9 26.0 - 34.0 pg 04/19/2024 5:42 PM CDT [facility] MCHC 34.7 32.0 - 36.0 g/dL 04/19/2024 5:42 PM [facility] RDW 12.6 11.5 - 15.5 % 04/19/2024 5:42 PM CDT [facility] PLATELET COUNT 336 140 - 440 thou/cu mm 04/19/2024 5:42 PM CDT [facility] MPV 9.1 6.5 - 11.0 fL 04/19/2024 5:42 PM CDT [facility] NRBC 0.0 % 04/19/2024 5:42 PM CDT [facility] ABS NRBC 0.0 thou /cu mm 04/19/2024 5:42 PM [facility] % NEUT 75.1 % 04/19/2024 5:42 PM T [facility] % LYMPH 14.3 % 04/19/2024 5:42 PM CDT [facility] % MONO 6.7 % 04/19/2024 5:42 PM CDT [facility] % EOS 2.6 % 04/19/2024 5:42 PM CDT [facility] % BASO 0.9 % 04/19/2024 5:42 PM T [facility] % IMMATURE GRAN (METAS,MYELOS,AZ OS) 0.4 % 04/19/2024 5:42 PM CDT [facility] ABSOLUTE NEUTROPHILS 13.2(H) 1.7 - 7.0 thou/cu mm 04/19/2024 5:42 PM CDT [facility] ABSOLUTE LYMPHOCYTES 2.5 0.9 - 2.9 thou/cu mm 04/19/2024 5:42 PM CDT [facility] ABSOLUTE MONOCYTES 1.2(H) <0.9 thou/cu mm 04/19/2024 5:42 PM CDT [facility] ABSOLUTE EOSINOPHILS 0.5(H) <0.5 thou/cu mm 04/19/2024 5:42 PM CDT [facility] ABSOLUTE BASOPHILS 0.2 <0.3 thou/cu mm 04/19/2024 5:42 PM CDT [facility] ABSOLUTE IMMATURE GRANULOCYTES(MET ,MYELOS,PROS) 0.1 <0.3 thou/cu mm 04/19/2024 5:42 PM CDT [facility] Blood BLOOD SPECIMEN / Unknown Venipuncture / Unknown 04/19/2024 5:09 PM CDT 04/19/2024 5:36 PM CDT Anw Ed Triage [facility] [address] [place] [address], * SCAN-LABORATORY REPORT (04/16/2024 12:00 AM CDT) [...] 9:03 AM 06/28/2010 4:07 PM Care Teams Cloth Roll Winder Relationship Specialty Start Date End Date Christa Burks PA-C [address] [place] [address] PCP - General Emergency Medicine 02/07/22 Pcp, No . 06/22/10
--- OUTSIDE RECORDS SUMMARY | 2024-05-15 12:33 | XMS_ITS | Clinical Summary ---
Author Organization [facility] Address [address] [place] [address]. [place] [address] Care Team Providers Care Hedge Fund Principal Name Role Phone Bruce, [place] [facility] Primary Care Provider Allergies No known [...] Advance Directives For more information, please contact: [phone] * Full Code (Latest Code Status on File) Date Activated Date Inactivated Comments 12/22/2015 9:08 AM 09/02/2018 12:21 PM * Full Code Date Activated Date Inactivated Comments 12/21/2015 12:28 PM 12/22/2015 9:08 AM * Full Code Date Activated Date Inactivated Comments 09/11/2013 6:38 PM 09/14/2013 2:23 PM Care Teams Hedge Fund Principal Relationship Specialty Start Date End Date Clinic, [facility] [address] [address] PCP - General 09/02/18
--- OUTSIDE RECORDS SUMMARY | 2024-05-15 12:33 | XMS_ITS | Clinical Summary ---
Author Organization [facility] Address [address] [place] [address] Care Team Providers Care Customs Compliance Director Name Role Phone Found, No Pcp MD [...] for each transition of care or referral. [facility] [address] Allergies No known active allergies Medications Medication [...] 12/21/2016 3:21 PM CDT Plan of Treatment Upcoming Encounters Date Type Department Care Team (Late st Contact Info) Description 06/11/2024 8:00 AM BOILER REPAIR SUPERVISOR Appointment [facility] [address] [place] [address] Rufino Monreal MD [address] [place] [address] Health Maintenance Due Date Last Done Comments Colon Cancer Screening Plan Due 1972 PSA Screening Discussion 1972 HIV Screening (Preventive Services) 1988 Adult Preventive Visit 1990 HepB (1) 1991 Cholesterol 2007 Zoster/Shingles (1 of 2) 2022 DTaP/Tdap/Td (2 - Tdap) 08/28/2023 08/28/2013 COVID-19 Vaccine (1 - season) 2024 Influenza (#1) 2024 04/19/2020, 03/2 10/2019, 05/09/2018, Additional history exists Pneumococcal (3 - [...] Recently Relevant to Health Maintenance Care Teams Customs Compliance Director Relationship Specialty Start Date End Date Found, No Pcp, [address] [place] [address] PCP - General 08/29/13
--- OUTSIDE RECORDS SUMMARY | 2024-05-15 12:33 | XMS_ITS | Continuity of Care Document ---
Author Organization [facility] Address [address] [facility] [place] [address] Phone Care Team Providers Care Door Repairman Name Role Phone Will Jaspal CASTANEDA Unavailable [...] Diagnoses Date Provider Providers Copied on Encounter [facility], [address] [facility] [place], [place], [id number] , [place] tel:[phone] [facility] [place] No Information 2 Jaxson Shay. [address] [place], [place], [id number] , [place]. tel: [phone] OFFICE/OUTPA TIENT VISIT, [facility], [address] [place], [place], [id number] , [place] tel: [phone] [facility] low back pain (chief complaint) Encounter for screening, unspecifiedAnxiety disorder, unspecifiedOther residential (current) drug therapyLow back pain 0 Pratibha Ruiz. [address], [place], [id number] , [place]. tel: [phone] Referring Provider: Jaspal Angel, [address] [facility] [place], [address] . tel:[phone] [facility], [address] [place] [address], [id number] , [place] tel: [phone] [facility] No Information 0 Kayleigh Mendoza. [facility], [address], [place], [address], [place]. tel: [phone] Family History Family Member Type Diagnosis Age At Onset No Information Payers Payer name Insurance type Covered democrat ID Authorrosalina napoles(s) [employer] [id number] Social History Type Description Quantity Date Captured [...] Previous GTB bursa and MBBx2 injections through [facility]. Scheduled to complete MBB 09/25 at [facility], pursuing RFA. Most recent imaging completed 06/2019 at [facility]. Previous trial of gabapentin caused aggression and [...]
--- OUTSIDE RECORDS SUMMARY | 2024-05-15 12:33 | XMS_ITS | Referral Summary ---
Author Organization [facility] Address [address] [place] [address]. 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 Name Role Phone Bruce, [facility] Primary Care Provider Allergies No known active [...] Advance Directives For more information, please contact: [phone] * Full Code (Latest Code Status on File) Date Activated Date Inactivated Comments 12/22/2015 9:08 AM 09/02/2018 12:21 PM * Full Code Date Activated Date Inactivated Comments 12/21/2015 12:28 PM 12/22/2015 9:08 AM * Full Code Date Activated Date Inactivated Comments 09/11/2013 6:38 PM 09/14/2013 2:23 PM Care Teams Towboat Pilot Relationship Specialty Start Date End Date Peña Barrera [address] [place] [id number] [facility] - General 09/02/18
--- NOTE | 2024-05-15 13:00 | CRLHL7_ITS ---
For Patients: As a result of the Cures Act, medical imaging exams and procedure reports are released immediately into your electronic medical record. You may view this report before your referring provider. If you have questions, please contact your health care provider. INDICATION: Headaches. TECHNIQUE: Sagittal axial and coronal T1 weighted images with and without gadolinium contrast. Axial FLAIR T2 diffusion-weighted and susceptibility weighted images. 20 cc of Dotarem contrast utilized. COMPARISON: CT brain dated 04/26/2024. Findings : Lateral, 3rd and 4th ventricles normal in size and configuration. No evidence of acute ischemic infarction. No diffusion restriction. Small well-defined focus of nonenhancing T2 prolongation within the right mid Baker radiata and adjacent corpus callosum likely due to chronic lacunar infarction. Smaller chronic lacunar infarcts in the right basal ganglia and mild chronic microvascular ischemia. No enhancing intra-axial or extra-axial lesion. No evidence of intracranial hemorrhage. Brainstem and cerebellum appear normal. Deformity of the left orbital floor consistent with the old trauma. Paranasal sinuses otherwise clear. IMPRESSION: 1. No evidence of acute intracranial abnormality. No enhancing intracranial lesions. 2. Consistent with chronic lacunar infarcts in the right basal ganglia and frontal lobe white matter as described. Dictated by Vasyl Hastings MD @ 05/16/2024 8:35:49 AM (Electronically Signed)
== END 2024-05-15 12:31 | disposition home or self-care (01) ==
LOC: MRI 12:30
PROVIDERS: PCP Physician Assistant Medical; Visit Provider Physician Assistant Medical
DX: R51.9 Headache, unspecified (principal); I63.81 Other cerebral infarction due to occlusion or stenosis of small artery; G89.29 Other chronic pain; H53.9 Unspecified visual disturbance
CPT/HCPCS: 70553; A9575